=== PATIENT | female | born 1965 | race Caucasian/White ===

== ENCOUNTER 2025-09-27 22:51 | Emergency (ER) | payer MEDICARE, SELFPAY ==
--- OUTSIDE RECORDS SUMMARY | 2025-09-15 09:00 | XMS_ITS | Encounter Summary ---
Author Organization [facility] tem Address [facility] [id number] [address] [place] [address] Care Team Providers Care Guest Services Representative Name Role Phone Adenike Carrasco Primary Care Provid er Encounter Details DateTypeDepartmentCare Team (Latest Contact Info)Qkchyhzmfmn43/28/2025 10:00 AM EDTNurse Injection [facility] - Pharmacy Medication Management [address] [place] [address] Encounter for immunization (Primary Dx); Type 2 diabetes mellitus with diabetic neuropathy, without long-term current use of insulin ([facility]) Social History Tobacco UseTypesPacks/DayYears UsedDateSmoking Tobacco: FormerCigarettes Smokeless Tobacco: NeverAlcohol UseStandard Drinks/WeekCommentsNever0 (1 standard drink = 0.6 oz pure alcohol)Social Connection and Isolation PanelAnswer Date RecordedIn a typical week, how many times do you talk on the phone with family, friends, or neighbors?Once a week12/01/2022How often do you get together with friends or relatives?Never12/01/2022How often do you attend episcopal or pentecostalism services?Never3Do you belong to any clubs or organizations such as episcopal groups, unions, fraternal or athletic groups, or school groups?No 12/01/2022How often do you attend meetings of the clubs or organizations you belong to?Never12/01/2022re you , , , , never , or living with a partner?Oysfsjy0512/01/2022UDIT-CAnswerDate RecordedQ1: How often do you have a drink containing alcohol?Never12/01/2022Q2: How many drinks containing alcohol do you have on a typical day when you are drinking? Patient does not drink12/01/2022Q3: How often do you have six or more drinks on one occasion?Never12/01/2022Overall Financial Resource Strain (CARDIA)AnswerDate RecordedHow hard is it for you to pay for the very basics like food, housing, medical care, and heating?Somewhat hard10/07/2023HQ-2AnswerDate RecordedTotal Edabk420Finut[facility] [place] Level of Occupational Health - Occupational Stress QuestionnaireAnswerDate RecordedDo you feel stress - tense, restless, nervous, or anxious, or unable to sleep at night because yourmind is troubled all the time - these days?Very much12/01/2022Exercise Vital SignAnswerDate RecordedOn average, how many days per week do you engage in moderate to strenuous exercise (like a brisk walk)?0 days12/01/2022On average, how many minutes do you engage in exercise at this level?0 min12/01/2022RAPARE - TransportationAnswerDate RecordedIn the past 12 months, has lack of transportation kept you from medical appointments or from getting medications?No10/07/2023In the past 12 months, has lack of transportation kept you from meetings, work, or from getting things needed for daily living?No10/07/2023Housing InstabilityAnswerDate RecordedAre you worried or concerned that in the next two months you may not have stable housing that you own, rent or stay in as a part of a household?No10/07/2023 ChildcareAnswerDate RecordedDo problems getting child care team lead make it difficult for you to work or study?No12/01/2022EmploymentAnswerDate RecordedDo you need help finding a local career center and/or a training program?No12/01/2022Hunger ScreeningAnswerDate RecordedWithin the past 12 months we worried whether our food would run out before we got money to buy more.Never True02/05/2025Within the past 12 months the food we bought just didn't last and we didn't have money to get more.Never True02/05/2025Purpose - LifeAnswerDate RecordedI have a purpose and direction in my life.Eopxekqn15/13/2023EducationAnswerDate Recorded What is the highest level of school you have completed or the highest degree you have received?12th grade08/21/2022CommentsNoSex and Gender Information ValueDate RecordedSex Assigned at SovawAvifjp81/03/2020 1:38 PM ESTLegal Sex Qdzsbp3306/24/2015 11:29 AM EDTGender AwyepjirDczewf26/03/2020 1:38 PM ESTSexual MxfzathooakPfwqtrdc45/03/2020 1:38 PM ESTdocumented as of this encounter Progress Notes * Amelie Alejo RPH - 09/15/2025 10:00 AM EDT AMELIE ALEJO RPH administered FLUCELVAX 0.5 ML via intramuscular route in the left deltoid on September 15, 2025. The Lot Number is [id number], [facility] is [id number], Web Operations Lead is [employer], and Expiration Date is 04/04/2026. VIS provided to patient on September 15, 2025. Patient provided consent to any costs associated with the influenza vaccine and administration. Amelie Alejo RPH 09/15/25 1020 * Amelie Alejo RPH - 09/15/2025 10:00 AM EDT Images from the original note were not included. Glucose is highly uncontrolled. We will add Tradjenta 5 mg daily and follow up in 1 week to assess glucose further. Amelie Alejo PharmD, [facility] September 15, 2025 10:06 AM Dexcom Clarity Effie Tim Date of : 1965 Generated at: Sep 15, 2025 10:05 AM EDT Reporting period: SunSep 02, 2025 - SunSep 15, 2025 Glucose Details Average glucose: 241 mg/dL GMI: 9.1% Standard deviation: 63 mg/dL Coefficient of Variation: 26.0% Time in Range Very High: 44% High: 38% In Range: 18% Low: 0% Very Low: 0% Target Range 70-180 mg/dL Sensor usage Days with data: Time active: 96% Avg. calibrations per day: 0.2 Amelie Alejo RPH 09/15/25 1020 documented in this encounter Plan of Treatment DateTypeDepartmentCare Team (Latest Contact Info)Uahbdoacptk17/04/2025 1:00 PM ESTClinical Support [facility] - [facility] Medication Management [address] [place] [address] documented as of this encounter Goals GoalPatient Goal TypeAssociated ProblemsRecent ProgressPatient-Stated?Author Home Elly Mcmullen, SHIRT TURNER Note: Evaluation of progress towards goal: pending therapy eval documented as of this encounter Visit Diagnoses Diagnosis Encounter for immunization- Primary Type 2 diabetes mellitus with diabetic neuropathy, without long-term current use of insulin ([facility]) documented in this encounter Additional Health Concerns AssessmentNoted TimePHQ-9 Depression Total Score: 2:08 PM EDTA Body Mass Index follow-up plan has been documented for the wznyydc6912/11/2019 1:20 PM ESTdocumented as of this encounter Care Teams Team MemberRelationshipSpecialtyStart DateEnd Date Adenike Carrasco APRN-DODIE [address] [place] [address] PCP - GeneralNurse Practitioner03/26/25documented as of this encounter
--- OUTSIDE RECORDS SUMMARY | 2025-09-23 14:00 | XMS_ITS | Encounter Summary ---
Author Organization [facility] [employer] [facility] tem Address [id number] [address] [place] [address] Care Team Providers Care Cartridge Assembler Name Role Phone Adenike Carrasco APRN-[employer] Primary Care Provid er Reason for Visit * ReasonCommentsDiabetes MellitusMTM Follow-up Visit Encounter Details DateTypeDepartmentCare Team (Latest Contact Info)Nrmsxaziidn75/05/2025 2:00 PM ESTClinical Support [facility] - Pharmacy Medication Management [address] [place] [address] Type 2 diabetes mellitus with diabetic neuropathy, without long-term current use of insulin ([facility]) (Primary Dx) Social History Tobacco UseTypesPacks/DayYears UsedDateSmoking Tobacco: FormerCigarettes Smokeless Tobacco: NeverAlcohol UseStandard Drinks/WeekCommentsNever0 (1 standard drink = 0.6 oz pure alcohol)Social Connection and Isolation PanelAnswer Date RecordedIn a typical week, how many times do you talk on the phone with family, friends, or neighbors?Once a week12/01/2022How often do you get together with friends or relatives?Never12/01/2022How often do you attend congregational or temple services?Never12/01/2022o you belong to any clubs or organizations such as congregational groups, unions, fraternal or athletic groups, or school groups?No 12/01/2022How often do you attend meetings of the clubs or organizations you belong to?Never12/01/2022re you , , , , never , or living with a partner?Rxpopeq5812/01/2022UDIT-CAnswerDate RecordedQ1: How often do you have a [...] housing, medical care, and heating?Somewhat hard10/07/2023HQ-2AnswerDate RecordedTotal Puojq764Fin[facility] hospital [place] of Occupational Health - Occupational Stress QuestionnaireAnswerDate [...] of a household?No10/07/2023 ChildcareAnswerDate RecordedDo problems getting assistant child care teacher make it difficult for you to work [...] have a purpose and direction in my life.Eacqevnl70/13/2023EducationAnswerDate Recorded What is the highest level of school you have completed or the highest degree you have received?12th grade08/21/2022CommentsNoSex and Gender Information ValueDate RecordedSex Assigned at DsdxdSawwvq67/03/2020 1:38 PM ESTLegal Sex Ezbqlq4006/24/2015 11:29 AM EDTGender UioqsiqkGmvlmc39/03/2020 1:38 PM ESTSexual CpypasscopkEhdoczix49/03/2020 1:38 PM ESTdocumented as of this encounter Last Filed Vital Signs Vital SignReadingTime TakenCommentsBlood Yocoegsk959/7409/23/2025 2:07 PM EST Idhzz254209/23/2025 2:07 PM ESTTemperature--Respiratory Rate--Oxygen Saturation-- Inhaled Oxygen Concentration--Cqncjy253.1 kg (267 lb)09/23/2025 2:07 PM EST Height--Body Mass Index45.8301/20/2025 1:57 PM ESTdocumented in this encounter Progress Notes * Louisa Alejo, [facility] - 09/23/2025 2:00 PM EST Images from the original note were not included. [facility] - PHARMACY MEDICATION MANAGEMENT [address] [facility] [address] Subjective SUBJECTIVE: PCP: PETER Panda Referring Provider: TINY Panda PPG Referring Provider: No-- Fax notes Consult Agreement: Yes Referral: Yes At last PharmD visit, Farxiga increased to 10 mg daily. After last OV, Tradjenta 5 mg daily started. Effie Tim is a 60 y.o. (White or [1]) female who presents for a follow up MT visit of Type 2 Diabetes Mellitus. Effie Tim is accompanied by her no spouse. Pertinent current medications include: Farxiga 10 mg QD Repaglinide 1 mg BIDWM Tradjenta 5 mg daliy Pertinent previous medications include: Trulicity (06/2022-09/2024)- even this lowest dose was causing bothersome GI upset. Tolerated for ~2years Ozempic (2018)- Nausea/vomiting Metformin (renal function- unable to locate clarifying notes as eGFR currently would allow for use.Was tried prior to 2021) Novolog ()- controlled glucose- no longer needed. Lantus ()- controlled glucose- no longer needed Jardiance (2021)- UTI Mounjaro (2023)-- GI side effects/ Leg swelling Tradjenta- (2021)- Changed to GLP. Can revisit in the future PERTINENT PAST MEDICAL HISTORY: Chronic Kidney Disease: Yes Atherosclerotic Cardiovascular Disease (ASCVD): No Heart Failure with Reduced/Preserved Ejection Fraction: No Pancreatitis/Gastroparesis: No Medullary Thyroid Carcinoma: No Bariatric Surgery: No Genitourinary Fungal Infections: Yes while on Jardiance DIET: Breakfast: Lunch: Dinner: Snacks: Drinks: No changes from previous EXERCISE: N/A Has been walking more recently TESTING Home blood glucose: Patient currently has a personal CGM in place. Blood Glucose Device Brand: CloudPartner G7 Diabetic Supplier: [employer] (Mail Order) Retail Dexcom Clarity Effie Tim Date of : 1965 Generated at: Sep 23, 2025 1:58 PM EST Reporting period: SunSep 10, 2025 - SunSep 23, 2025 Glucose Details Average glucose: 227 mg/dL GMI: 8.7% Standard deviation: 65 mg/dL Coefficient of Variation: 28.8% Time in Range Very High: 35% High: 41% In Range: 24% Low: 0% Very Low: 0% Target Range 70-180 mg/dL Sensor usage Days with data: Time active: 97% Avg. calibrations per day: 0.2 Objective OBJECTIVE: Vitals: BP 152/74 Pulse (!) 48 Wt 121.1 kg (267 lb) BMI 45.83 kg/m?? Caffeine intake within 60 minutes: No Height: Weight: Wt Readings from Last 3 Encounters: 09/23/25 121.1 kg (267 lb) 04/15/25 121.4 kg (267 lb 9.6 oz) 02/05/25 119.7 kg (264 lb) Weight Trend: stable BMI: Body mass index is 45.83 kg/m??. A1c: Lab Results Component Value Date HGBA1C 6.5 (H) 06/10/2023 TIDITGT3I 6.8 (A) 07/16/2025 SCr: Lab Results Component Value Date CREATININE 1.08 (H) 05/08/2025 GFR: GFR MDRD Af Amer Date Value Ref Range Status 01/09/2022 47 (L) >59 ml/min/1.73sq.m Final GFR MDRD Non Af Amer Date Value Ref Range Status 01/09/2022 39 (L) >59 ml/min/1.73sq.m Final UACR: @LABLAST(albcreatra) No results found for: EXTPOCALB Lab Results Component Value Date EXTUMICOR <0.2 05/14/2018 Vitamin B12 Level: Lab Results Component Value Date AKQLMMPX15 316 10/20/2021 Lipid Management: Lab Results Component Value Date CHOL 177 07/16/2024 EXTCHOL 228 05/14/2018 HDL 55 07/16/2024 EXTCHOHDL 3.7 05/14/2018 LDLCALC 101 07/16/2024 EXTLDL 145 05/14/2018 TRIG 106 07/16/2024 EXTRIG 103 05/14/2018 The 10-year ASCVD risk score (Larisa NAVA, et al., 2019) is: 8.9% Values used to calculate the score: Age: 60 years Clinically relevant sex: Female Is Non- : No Diabetic: Yes Tobacco smoker: No Systolic Blood Pressure: 138 mmHg Is BP treated: Yes HDL Cholesterol: 55 mg/dL Total Cholesterol: 177 mg/dL ADA Diabetes Quality Measures: Comments: Eye/Foot; UACR and Lipids are due - A1c: Up to date 07/16/25; 6.8% - Kidney Screening: - SCr: Up to date 04/22/25; 1.11 - UACR: Up to date 07/16/24 - Lipid Screening: Up to date 07/16/24 - Eye Exam: Overdue 04/30/2023; Rec'd 04/15/25 - Foot Exam: Overdue Possibly changing to DPM; not established yet - Dental Exam: Up to date 03/2025 - Tobacco User: Yes - On Aspirin: No- not indicated - On SHANNA/ARB: No- previously on valsartan (2021-1119). Unclear why stopped. Follows with [facility] cardiology - On Statin: No intolerant; LDL 101 - Immunizations: Needs Shingles/HepB Influenza Complete: Yes Pneumonia Complete: Yes Hepatitis B Complete: Unknown Shingles Complete: Unknown Tdap Complete: Yes Covid Complete: Yes Immunization History Administered Date(s) Administered COVID-19, mRNA, LNP-S, PF, 100mcg/0.5mL Dose 06/16/2021, 07/14/2021, 09/17/2021, 11/21/2021, 01/26/2022 Influenza, Im Flucelvax (Pf) 09/15/2025 Influenza, Injectable, quadrivalent (PF) 07/23/2017, 08/20/2017, 08/20/2018, 01/26/2022 Influenza, Recombinant, Quadrivalent, Injectable, Preserv 08/22/2019, 09/04/2020 Pneumococcal Polysaccharide 04/02/2015, 06/21/2015 Tdap 02/05/2024 ASSESSMENT/PLAN: ASSESSMENT: Type 2 Diabetes Mellitus: controlled as evidenced by hemoglobin A1c of 6.8% on 07/16/25. Most recent 2 week blood glucose average: 227 mg/dL, 24% TIR Glucose is exceptionally uncontrolled and finger sticks mirror CGM indicating accuracy of these elevations Patient endorses she has been under high stress secondary to illness of her own, her spouse, and her mother Tolerating dose increase of Farxiga and addition of Tradjenta without concern Consider retrial of metformin in the future. Per notes, it was stopped due to renal concerns in thepast. Scr remains near 1 at present time BP elevated in office again and patient endorses it has been elevated at home. Patient is followingwith [facility] cardiology. Encouraged her to call them with her current readings for potential adjustments to her regimen EDUCATION / ADA MEASURES: Reviewed A1C and blood glucose goals Reviewed CGM use and report with patient Reviewed signs and symptoms of hyperglycemia/hypoglycemia and how to treat Reviewed diabetes medication dosing, route, frequency, and side effects Encouraged using the Plate Method for healthy eating MEDICATION PLAN: Increase Repaglinide 2mg TIDWM Glucose is exceptionally uncontrolled. We will titrate repaglinide Continue Farxiga 10 mg daily and Tradjenta 5 mg daily Refills needed on pertinent current medications/supplies: No Patient Assistance, Grooving Machine Operator Coupon, or Prior Authorization: No MONITORING: CGM: Yes Glucometer Testing: As needed with CGM FOLLOW UP: Next PCP visit: TBD Next Pharmacist visit: 10/2025 Signature: Louisa Alejo PharmD, [facility] 30 minute mxgj-jj-uqai follow-up appointment. Louisa Alejo RPH 09/24/25 1457 documented in this encounter Plan of Treatment DateTypeDepartmentCare Team (Latest Contact Info)Ltpkmkpyamy31/04/2025 1:00 PM ESTClinical Support [facility] - [facility] Medication Management [address] [place] [address] documented as of this encounter Goals GoalPatient Goal TypeAssociated ProblemsRecent ProgressPatient-Stated?Author Home Elly Mcmullen, ITEM REPAIR MANAGER Note: Evaluation of progress towards goal: pending therapy eval documented as of this encounter Visit Diagnoses Diagnosis Type 2 diabetes mellitus with diabetic neuropathy, without long-term current use of insulin ([facility])- Primary documented in this encounter Additional Health Concerns AssessmentNoted TimePHQ-9 Depression Total Score: 2:08 PM EDTA Body Mass Index follow-up plan has been documented for the xpniqqd4712/11/2019 1:20 PM ESTdocumented as of this encounter Care Teams Team MemberRelationshipSpecialtyStart DateEnd Date Adenike Carrasco APRN-DODIE [address] [place] [address] PCP - GeneralNurse Practitioner03/26/25documented as of this encounter
[2025-09-27 22:55] VITALS: BP 165/97; PULSE 61; TEMP 36.7; O2SAT 99; BMI 44.6
[2025-09-27 23:16] LABS: Hematocrit 44.9 % (36.0-48.0); Hemoglobin 14.7 g/dL (12.0-16.0); Immature Granulocytes Abs Auto 0.03 10^3/uL (0.00-0.03); Immature Granulocytes Pct Auto 0.4 % (0.0-0.5); Lymphocytes Absolute Auto 1.2 10^3/uL (1.2-3.8); Mean Corpuscular HGB Conc 32.7 g/dL (29.9-35.2); Mean Corpuscular Hemoglobin 29.5 pg (26.7-34.0); Mean Corpuscular Volume 90.2 fL (81.0-99.0); Platelet Count 151 10^3/uL (150-450); Red Blood Count 4.98 10^6/uL (4.20-5.40); White Blood Count 8.5 10^3/uL (4.0-11.0)
[2025-09-27] MEDS: KETOROLAC TROMETHAMINE 30 MG/ML VIAL IVP (23:19)
[2025-09-27] MEDS: 0.9 % SODIUM CHLORIDE 1,000 ML 100 ML IV (23:19)
[2025-09-27 23:44] LABS: Alanine Aminotransferase 33 U/L (14-59); Albumin Globulin Ratio 0.7; Albumin Level 3.0 g/dL (3.4-5.0); Alkaline Phosphatase 119 U/L (46-116); Anion Gap 12.8; Aspartate Amino Transferase 26 U/L (15-37); Blood Urea Nitrogen 22.0 mg/dL (7.0-18.0); Calcium 8.8 mg/dL (8.5-10.1); Carbon Dioxide 22.1 mmol/L (21.0-32.0); Chloride 111 mmol/L (98-107); Estimated GFR (African America 44 (>=60 mL/min/1.73m^2); Estimated GFR (Non-African Ame 36 (>=60 mL/min/1.73m^2); Globulin 4.1 g/dL; Glucose 235 mg/dL (74-106); Lipase 64.0 U/L (16.0-77.0); Potassium 3.9 mmol/L (3.5-5.1); Sodium 142 mmol/L (136-145); Total Protein 7.1 g/dL (6.4-8.2)
[2025-09-27 23:48] LABS: Glucose Urine UA >=1000 mg/dL (NEGATIVE)
--- OUTSIDE RECORDS SUMMARY | 2025-09-27 23:50 | XMS_ITS | Encounter Summary ---
Author Organization [employer] [facility] tem Address [id number] [address] [place] [address] Care Team Providers Care Boat Tester Name Role Phone Adenike Carrasco Primary Care Provid er Encounter Details DateTypeDepartmentCare Team (Latest Contact Info)Kckzpsyyidi51/28/2025Travel Social History Tobacco UseTypesPacks/DayYears UsedDateSmoking Tobacco: FormerCigarettes Smokeless Tobacco: NeverAlcohol UseStandard Drinks/WeekCommentsNever0 (1 standard drink = 0.6 oz pure alcohol)Social Connection and Isolation PanelAnswer Date RecordedIn a typical week, how many times do you talk on the phone with family, friends, or neighbors?Once a week12/01/2022How often do you get together with friends or relatives?Never12/01/2022How often do you attend hindu or mandaeism services?Never12/01/2022o you belong to any clubs or organizations such as hindu groups, unions, fraternal or athletic groups, or school groups?No 12/01/2022How often do you attend meetings of the clubs or organizations you belong to?Never12/01/2022re you , , , , never , or living with a partner?Mnonlub0512/01/2022UDIT-CAnswerDate RecordedQ1: How often do you have a [...] housing, medical care, and heating?Somewhat hard10/07/2023HQ-2AnswerDate RecordedTotal Nketo740F[facility] [place] of Occupational Health - Occupational Stress QuestionnaireAnswerDate [...] a household?No10/07/2023 ChildcareAnswerDate RecordedDo problems getting child protection specialist make it difficult for you to work [...] have a purpose and direction in my life.Hwsqesnx30/13/2023EducationAnswerDate Recorded What is the highest level of school you have completed or the highest degree you have received?12th grade2CommentsNoSex and Gender Information ValueDate RecordedSex Assigned at IbjzrQczwij66/03/2020 1:38 PM ESTLegal Sex Mifotv1306/24/2015 11:29 AM EDTGender GjldxrkwVhyopt51/03/2020 1:38 PM ESTSexual RzqbgtvtqemEyipjxzb72/03/2020 1:38 PM ESTdocumented as of this encounter Plan of Treatment DateTypeDepartmentCare Team (Latest Contact Info)Eecwekjzxeb46/04/2025 1:00 PM ESTClinical Support [facility] - Pharmacy Medication Management [address] [place] [address] documented as of this encounter Goals GoalPatient Goal TypeAssociated ProblemsRecent ProgressPatient-Stated?Author Home Elly Mcmullen, LENS ENGRAVER Note: Evaluation of progress towards goal: pending therapy eval documented as of this encounter Visit Diagnoses Not on filedocumented in this encounter Additional Health Concerns AssessmentNoted TimePHQ-9 Depression Total Score: 2:08 PM EDTA Body Mass Index follow-up plan has been documented for the vbhdhta9012/11/2019 1:20 PM ESTdocumented as of this encounter Care Teams Team MemberRelationshipSpecialtyStart DateEnd Date Adenike Carrasco APRN-NP [address] [place] [address] PCP - GeneralNurse Practitioner03/26/25documented as of this encounter
--- OUTSIDE RECORDS SUMMARY | 2025-09-27 23:50 | XMS_ITS ---
Author Organization [facility] Address [facility] [place] [address] Care Team Providers Care Catering Driver Name Role Phone Leandra Bailey PHLEBOTOMIST LAB ASSISTANT Unavailable Unavailable Leah Lozano MD Unavailable Pascual De Los Santos MD Unavailable Adenike Carrasco CHEMISTRY RESEARCH ASSISTANT Primary Care Provider Active Problems ProblemNoted DateDiagnosed DateGastroesophageal reflux disease without plguxtmztyq43/26/2025Primary kvdzwexsrcym97/26/2025RLS (restless legs syndrome) 06/13/2025hronic pain jomsscat58/26/2025Seizure-like okrlezjv08/25/2025reast edema5Absolute yqhsqs6902/09/2025Obstructive sleep apnea4BMI 45.0-49.9, adult01/07/2024epression, wodmmotll80/08/2023Stage 3b chronic kidney uwcqqoe2312/26/2021Megaloblastic anemia due to vitamin B12 cmtwlaealc11/07/2022 Iron deficiency uoqqfc1112/05/2018History of pulmonary rubgwaas16/17/2019Left Breast Lump or Mass10/13/2014Personal history of Right Breast Cancer 2009 s/p BCT112/13/2013Numbness in feet11/08/2012Peripheral oaswobumdd24/21/2012Type 2 diabetes mellitus with diabetic neuropathy, without long-term current use of bsjmrvo7911/08/2012reast nmdpxk4209/04/20128682Crqtebjmaqynm08/17/2012 Current Treatment and Therapy Plans No current plan information found. Past Treatment and Therapy Plans
--- OUTSIDE RECORDS SUMMARY | 2025-09-27 23:50 | XMS_ITS | Clinical Summary ---
Author Organization [facility] Address [address] [place] [id number] Care Team Providers Care Staff Research Associate Name Role Phone Leandra Bailey DATA MANAGEMENT MANAGER Unavailable Unavailable Leah Lozano MD Unavailable Pascual De Los Santos MD Unavailable Adenike Carrasco AUTOMOBILE PARTS ASSEMBLER Primary Care Provider Allergies Active AllergyReactionsCriticalityNoted DateCommentsAlpha Lipoic AcidDiarrhea,GI Upset,Other: See Comments,Intolerance,Itching,Zydrzsxw80/30/2021Alpha Lipoic Acid (Bulk)Diarrhea,GI Upset,Itching,Other: See Lltpiqpt69/30/2021sparagus Ipagacrqfxh75/25/2025Sulfamethoxazole-WikftfgzibxcSmpmsdm90/17/2025Calcium Phos,Dibas-Vitamin Y9Jdasi: See Rqfmutyx03/03/2021 Other reaction(s): Unknown Cholecalciferol (Vitamin D3)Gvjyzkrc16/18/2018Citrus HqigcxWovessdewdo83/25/2025 Rosuvastatin SpiajyyFtvkijxn90/10/1025UgypbywefjbceodXrxitlv14/10/2019Diltiazem Intolerance,GI Upset,Hives,Dewjgua5511/08/2012 Other reaction(s): Intolerance Diphenhydramine-PhenylephrineOther: See Comments,HalyrskHqxjyj31/26/2020 Muscle Spasm and Twitching Other reaction(s): Other: See Comments Muscle Spasm and Twitching Muscle Spasm and Twitching Amitriptyline RleAgnvtysj94/25/8916FwwttbyafxWxtls70/10/2019Grapefruit Bnqvmmcfbpi35/25/2025IronGI Upset,Diarrhea,Intolerance,Pffyigca89/18/2018 Atorvastatin MjukvjkYufbpuzu82/03/0866YfrzchzbdlDpaoq49/29/2020TirzepatideOther: See Bfbwwpeu83/20/2024 Legs swollen NortriptylineOther: See Tvrlyuvg12/07/2013 mouth turned purple OxcarbazepineOther: See Comments,Wnrfbzk9406/25/2013 mouth turned purple Other reaction(s): Other: See Comments mouth turned purple mouth turned purple PramipexoleGI Upset,Yqdscoy9909/29/2014 Other reaction(s): GI Upset SemaglutideVomiting,GI Upset06/03/20200034ZdbqzzcQesxphzcxct38/25/2025 Ffjrwxt-Haj-Mzr Reductase TvszqueycbAybmw99/26/2228HgucngVtbnvqnnzex27/25/2025 TopiramateOther: See Hmjietrb62/07/2013 Feels like she is being electrocuted OwsovdjfrMrcucee38/01/9418WpsvzwlewnhHwuqmbn98/18/2018 ALL antidepressants Vitamin E PhosphateGI Upset07/10/2023 Stomach issues Medications MedicationSigDispense QuantityRefillsLast FilledStart DateEnd DateStatus pantoprazole DR (PROTONIX) 40 mg tablet Take 40 mg by mouth once daily.Active calcitriol (ROCALTROL) 0.25 mcg capsule Take 0.25 mcg by mouth three times a week. Weaning offActive METOPROLOL SUCCINATE ORAL Take 50 mg by mouth once daily.Active fluticasone (FLONASE) 50 mcg/actuation nasal spray Use 1 [place] in the nose.12/06/2022ctive escitalopram oxalate (LEXAPRO) 10 mg tablet 12/26/2022ctive fexofenadine (SHOSHANA ALLERGY) 180 mg tablet Take by mouth q 24 HR.Active apixaban (ELIQUIS DVT-PE TREAT 30D START) 5 mg (74 tabs) Take 2 tablets by mouth twice daily for 6 days, then take 1 tablet twice daily 06/13/2023ctive naloxone 4 mg/actuation nasal spray (NARCAN) Use 1 spray in one nostril as needed for overdose. May repeat every 2 to 3 min in alternating nostrils until medical assistance is available 1 Each 4Active CPAP/BIPAP/OTHER Indications:Obstructive sleep apnea,Excessive daytime sleepiness,Frequent nocturnal awakening,Snoring,Witnessed episode of apneaAutoCPAP 9-17 cmH20. DME: [facility]. 1 Each /ctive Needle, Disp, 23 G 23 gauge x 1 ndle Indications:Other vitamin B12 deficiency anemia1 Needle once every month. 12 Each 6Active Syringe, Disposable, (SAFETY-GREG SYRINGE 3CC) 3 mL syrg Indications:Other vitamin B12 deficiency anemia3 mL once every month. 12 each 6Active zonisamide (ZONEGRAN) 25 mg capsule Take 3 capsules by mouth daily at bedtime. 270 capsule 5Active cyanocobalamin 1,000 mcg/mL Indications:Other vitamin B12 deficiency anemiaINJECT 1 mL INTRAMUSCULARLY once monthly 1 mL 5Active rOPINIRole (REQUIP) 1 mg tablet TAKE 2 TABLETS BY MOUTH DAILY AT BEDTIME. TAKE 1-3 hours BEFORE bedtimeActive albuterol HFA (PROVENTIL HFA, VENTOLIN HFA) 90 mcg/actuation inhaler Inhale 2 puffs as instructed every 6 hours as needed for wheezing/shortness of breath.5Active Amoxicillin 500 mg tablet Take 1 tablet by mouth.5Active dapagliflozin propanediol (FARXIGA) 5 mg tablet 5Active repaglinide (PRANDIN) 1 mg tablet Take 1 mg by mouth two times a day before meals.5Active DEXCOM G7 SENSOR natty 5Active tiZANidine (ZANAFLEX) 4 mg tablet Take 1 tablet by mouth every 8 hours as needed. 90 tablet 5Active oxyCODONE ER (OXYCONTIN) 40 mg 12 hr tablet Indications:Nerve painTake 1 tablet by mouth every 12 hours for 30 days. 60 tablet /5Active naloxone 4 mg/actuation nasal spray (NARCAN) [place] 0.1 mL (contents of one device) into one nostril upon signs of opioid overdose. Call 911. Mayrepeat once if no response within 2-3 minutes. 2 each 09/08/2025tive tiZANidine (ZANAFLEX) 4 mg tablet Take 1 tablet by mouth every 8 hours as needed. 90 tablet Discontinued oxyCODONE ER (OXYCONTIN) 40 mg 12 hr tablet Indications:Nerve painTake 1 tablet by mouth every 12 hours for 30 days. 60 tablet Discontinued naloxone 4 mg/actuation nasal spray (NARCAN) Use 1 spray in one nostril as needed for overdose. May repeat every 2 to 3 min in alternating nostrils until medical assistance is available 1 each Discontinued naloxone 4 mg/actuation nasal spray (NARCAN) Use 1 spray in one nostril as needed for overdose. May repeat every 2 to 3 min in alternating nostrils until medical assistance is available 1 each Discontinued Active Problems ProblemNoted DateDiagnosed DateGastroesophageal reflux disease without xjwlnklpaox56/26/2025Primary vgspsrhrptid02/26/2025RLS (restless legs syndrome) 06/13/2025hronic pain ezwweffl98/26/2025Seizure-like znpubmsv42/25/2025reast edema04/06/2025bsolute phqfrw1402/09/2025Obstructive sleep apnea4BMI 45.0-49.9, adult01/07/2024epression, quveefrgr52/08/2023Stage 3b chronic kidney qocmwyw3912/26/2021Megaloblastic anemia due to vitamin B12 uasczgvstn43/07/2022 Iron deficiency gykads3812/05/2018History of pulmonary njqxpaaf03/17/2019Left Breast Lump or Mass10/13/2014Personal history of Right Breast Cancer 2009 s/p BCT112/13/2013Numbness in feet11/08/2012Peripheral hnhkkatbju53/21/2012Type 2 diabetes mellitus with diabetic neuropathy, without long-term current use of nfpyonp9411/08/2012reast glvvzi6709/04/20121162Uqtlgxhirucdm61/17/2012 Encounters DateTypeDepartmentCare KjopJztgxqnkdnf38/21/2025Refill Neurology [address] [place] [address], [place] [address] Zachary Martínez, DO Med Change Wnwxbbk1809/07/2025Refill Neurology [address] [place] [address] Zachary Martínez, DO Med Change Ouptvts9009/07/2025Refill Neurology [address] [place] [address] Zachary Martínez, DO Refill Wyzbvmm8408/29/2025Orders Only Pseud[place] [address] Pascual De Los Santos MD 08/27/2025Orders Only [place] [address] Pascual De Los Santos MD 08/09/2025Refill Neurology [address] [place] [address] Zachary Martínez, DO Refill Ryeqvda8207/30/2025Orders Only [place] [address] Pascual De Los Santos MD 07/17/2025 4:30 PM [facility] [address] [place] [address], [place] [address] Bria Alfaro, UNITIZER.PERFORMANCE IMPROVEMENT ANALYST Seizure-like activity (HCC) (Primary Dx); Depression, recurrent; Primary zbqlhjgxturp07/24/2025Refill Neurology [address] [place] [address] Zachary Martínez, DO Refill Opqqetq7807/12/20254688Oetrtw37/12/2025Orders Only [place] [address] Pascual De Los Santos MD from Last 3 Months Immunizations ImmunizationAdministration DatesNext DueCOVID-19 original vaccine, full dose, monovalent (MODERNA)11/21/2021,09/17/2021influenza (IIV4) vaccine, age 6 mo - 64 yr, quadrivalent, PF (AFLURIA, FLUARIX, FLULAVAL, FLUZONE)01/26/2022,08/20/2018, 08/20/2017,07/23/2017influenza (RIV4) vaccine, recombinant, quadrivalent, PF (FLUBLOK)09/04/2020,08/22/2019influenza vaccine, unspecified formulation 2pneumococcal polysaccharide (PPV23) vaccine, 23 valent (PNEUMOVAX 23) 06/21/2015,04/02/2015tetanus diphtheria pertussis (Tdap) vaccine, age 7+ yr (ADACEL, BOOSTRIX)02/05/2024 Family History Medical HistoryRelationCommentsHypertensionFatherBreast CancerMaternal AuntGreat Aunt; DeceasedHeartMaternal GrandmotherDeceasedNoneMotherNoneSister 2Relation StatusCommentsFatherAliveMaternal AuntMaternal GrandmotherMotherAliveSister 1 AliveSister 2 Social History Tobacco UseTypesPacks/DayYears UsedDateSmoking Tobacco: Some ErllAmskxlgeud977.7 Started: 01/24/1985Passive Smoke Exposure: PastSmokeless Tobacco: Never Comments:Smokes a few cigare ttes when anxious Alcohol UseStandard Drinks/WeekCommentsNever0 (1 standard drink = 0.6 oz pure alcohol)PHQ-2AnswerDate RecordedPHQ-2 mrpwx698rea Deprivation Index AnswerDate RecordedNational Score (1-100), lower number is lower risk81 02/09/2025State Score (1-10), lower number is lower znyo36902/09/2025Data from: https://www.neighborhoodatlas.[facility].edu/. Last address used for [address] CommentsNoSex and Gender InformationValueDate RecordedSex Assigned at YbamyMfzjzp82/10/2019 6:28 PM EST Legal SmvLiwdvd86/02/2012 10:12 AM ESTGender RvrpetquCirpls45/02/2020 8:02 PM ESTSexual DdtcagipeapLvvfspyk13/10/2019 6:28 PM EST Last Filed Vital Signs Vital SignReadingTime TakenCommentsBlood Isofboqf888/9307 7:20 AM EDT Kkeul724406/15/2025 8:33 AM MQPFqbymbyixgo27.9 ??C (98.4 ??F)06/15/2025 7:20 AM EDTRespiratory Geog381106/15/2025 7:20 AM EDTOxygen Eubmomsiql68%06/15/2025 7:20 AM EDTInhaled Oxygen Concentration--Yvzooq858.3 kg (269 lb 10 oz)06/12/2025 2:17 PM TINGwgijx169.6 cm (5' 4 )06/12/2025 2:17 PM EDTBody Mass Index46.28006/12/2025 2:17 PM EDT Plan of Treatment DateTypeDepartmentCare Team (Latest Contact Info)Jazbscjswum63/09/2026 2:00 PM EDTOffice Visit [facility] [address] [place] [address] 1 Year lab03/04/2026 2:00 PM EDTVisit (SP) Office Hematology/Oncology [address] [place] [address] Stan Bell MD [address] [place] [address] 1 Year follow upHealth MaintenanceDue DateLast DoneCommentsDiabetic Foot Exam 1975Dilated Retinal Exam1975Annual PCP Team Chronic Disease Visit 1983Anxiety Ohstgdplv18/02/1983HIV Qjbsgktbc85/02/1983Hepatitis C Wiolecjkh78/02/1983LDL Lsbcttsweaj43/02/1983Cervical Cancer Oxywhccyb56/02/1986 CT Krdjxvwlwvcn58/02/2010Cologuard (FIT-DNA)05/20/20108728Launidepxip52/02/2010 Colorectal Cancer Llymtwerr20/02/2010Fecal Occult Blood2010Sigmoidoscopy 2010Shingrix Vaccine (1 of 2)2015Pneumococcal Vaccine: 50+ (2 of 2 - PCV), 04/02/2015Medicare Advantage Annual Wellness Visit 11/19/2024RSV Vaccine (1 - Risk 60-74 years 1-dose series)2025ovid-19 Vaccine ( season)/08/2022, 11/21/2021, 09/17/2021, Additional history existsInfluenza Vaccine (#1)/08/2022, 01/26/2022, 09/04/2020, Additional history ejryudGfI6W39/28/202608/, 04/15/2025, 01/16/2025, Additional history existsLung Cancer Mbiewwjfr59, 01/20/2025, 09/01/2023, Additional history existsMammogram Gnsgyniva67/18/2026 02/03/2025, 12/26/2024, 12/25/2023, Additional history existsUrine Albumin:Creatinine Ratio, 10/21/2024, 07/16/2024, Additional history existsSerum Owgexmiyys96, 05/08/2025, 04/22/2025, Additional history existsDTaP,Tdap,Td Vaccine (2 - Td or Tdap)02/04/2034 02/05/2024 Goals GoalPatient Goal TypeAssociated ProblemsRecent ProgressPatient-Stated?Author Blood Pressure < 130/80 Blood Ycqkminh000/93(06/15/2025 7:20 AM EDT)Cheryl Solis MD Medical Devices ImplantedTypeAreaManufacturerDevice IdentifierShelf Expiration DateModel / Serial / [id number] Implanted:04/22/2025 (Quantity not on file)Loop RecorderMEDTRONIC [id number] / [id number] / Procedures Procedure NamePriorityDate/TimeAssociated DiagnosisCommentsREM INTERROG SCRMS <30 D PHYS/SWLHbfgmyt96/11/2025 7:12 PM EDT CARDIAC IMPLANTABLE DEVICE CHECK IZTYMYGfwukdg93/09/2025 12:02 AM EDT CARDIAC IMPLANTABLE DEVICE CHECK EKQBJFSflwjan45/11/2025 7:16 PM EDT REM INTERROG SCRMS <30 D PHYS/EQYXetunci39/12/2025 7:13 PM EDT COMPREHENSIVE METABOLIC CLDFDAfnbmbs19/26/2025 1:12 AM EDT MAVERICK SWIFT MPBPVBVWNDdeqcmv11/18/2025 2:26 PM EDT HEMOGLOBIN V8OUqiroqv94/20/2015 10:57 AM EDT Clotting disorder (HCC) Vitamin deficiency Neuropathy (HCC) 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), type 1 with neurological complications (HCC) from Last 3 Months or Most Recently Relevant to Health Maintenance Results * CARDIAC IMPLANTABLE DEVICE CHECK REMOTE (08/29/2025 7:12 PM EDT)ComponentValue Ref RangeTest MethodAnalysis TimePerformed AtPathologist SignatureDate Time Interrogation [id number] CARDIACType Interrogation Session RemoteMUR CARDIACImplantable Pulse Generator ManufacturerMedtronicMURJ CARDIACImplantable Pulse Generator TypeOtherMURJ CARDIACImplantable Pulse Generator [id number] CARDIACImplantable Pulse Generator Serial Number [id number] CARDIACImplantable Pulse Generator Implant [id number] CARDIACSpecimen (Source)Anatomical Location / LateralityCollection Method / VolumeCollection TimeReceived Time08/29/2025 7:12 PM EDT Narrative MURJ CARDIAC - 08/31/2025 1:06 PM EDT Normal Remote: No Events * This is a normal remote diagnostic device check * Alerts or events: None * Battery data was reviewed * Battery status: ??good , * Presenting rhythm reviewed: sinus * Heart Rate Histograms reviewed * PVCs (% beats) 0.5% Patient Triggered * Patient triggered event with symptom(s) * Stored EGMs are consistent with or suggestive of _sinus with PAC's__ * Total patient triggered episodes: 4 NOTE TO PROVIDERS: Cardiac Implanted Devices Flowsheets contain detailed Programming and Evaluation data. Full Docket/PDF found below under Scanned Documents . Procedure Note Pascual De Los Santos MD - 08/31/2025 Normal Remote: No Events * This is a normal remote diagnostic device check * Alerts or events: None * Battery data was reviewed * Battery status: good , * Presenting rhythm reviewed: sinus * Heart Rate Histograms reviewed * PVCs (% beats) 0.5% Patient Triggered * Patient triggered event with symptom(s) * Stored EGMs are consistent with or suggestive of _sinus with PAC's__ * Total patient triggered episodes: 4 NOTE TO PROVIDERS: Cardiac Implanted Devices Flowsheets contain detailed Programming and Evaluation data. Full Docket/PDF found below under Scanned Documents . Authorizing ProviderResult TypeResult StatusPasquBess [facility] Hospital MDCARDIOLOGY Final ResultPerforming OrganizationAddressCity/State/ZIP CodePhone Number MURJ CARDIAC * CARDIAC IMPLANTABLE DEVICE CHECK REMOTE (08/27/2025 12:02 AM EDT)Component ValueRef RangeTest MethodAnalysis TimePerformed AtPathologist SignatureDate Time Interrogation [id number] CARDIACType Interrogation SessionRemoteMURJ CARDIACImplantable Pulse Generator ManufacturerMedtronicMURJ CARDIACImplantable Pulse Generator TypeOtherMURJ CARDIACImplantable Pulse Generator HougnFXZ29OIJG CARDIACImplantable Pulse Generator Serial Number [id number] CARDIACImplantable Pulse Generator Implant [id number] CARDIACBattery StatusOKMURJ CARDIACZone Setting Type CategoryBradyMURJ CARDIAC Rate 130MURJ CARDIACZone Setting Detection Bwmhnkw4JTUP CARDIACZone Setting StatusOnMURJ CARDIACZone HV4YZLG CARDIACZone Setting Type CategoryPauseMURJ CARDIACRate 13MURJ CARDIACZone Setting StatusOnMURJ CARDIACZone [id number] CARDIACZone Setting Type CategoryAFMURJ CARDIACZone Setting StatusOnMURJ CARDIACZone EH8QLAZ CARDIACZone Setting Type CategoryATMURJ CARDIACZone Setting StatusOffMURJ CARDIACZone MQ2AKWC CARDIACZone Setting Type Category TachyMURJ CARDIACRate 1171MURJ CARDIACZone Setting Detection Zlppccx45ZLVK CARDIACZone Setting StatusOnMURJ CARDIACZone BH3DUWO CARDIACSpecimen (Source) Anatomical Location / LateralityCollection Method / VolumeCollection Time Received Time08/27/2025 12:02 AM EDT Narrative MURJ CARDIAC - 08/31/2025 1:05 PM EDT Patient Triggered: No Arrhythmia * Patient triggered event with symptom(s) N/A * Stored EGMs are consistent with or suggestive of no arrhythmia(s) * Total patient triggered episodes: 01 Patient Triggered * Patient triggered event with symptom(s) none listed * Stored EGMs are consistent with or suggestive of _SR/SB__ * Clinical arrhythmia during triggered event: _SR/SB with ectopy ( PAC's) and non-sustained AT run ( 6 beats)__ * Total patient triggered episodes: 1 at 17:28 on 08/26/25. Estimated: PVCs (% beats) 0.4% Premature Atrial Contraction (PAC) * Stored EGMs are consistent with or suggestive of Premature Atrial Contraction(s) * Total episodes: _1 binned as patient triggered alert at 17:28 on 08/26/25__ Seen as singles and couplets Non-sustained Tachycardia: AT * Stored EGMs are consistent with or suggestive of SR/SB with ectopy and non- sustained Atrial Tachycardia (6 beats) * Total episodes: 1 at 17:28 on 08/26/25 NOTE TO PROVIDERS: Cardiac Implanted Devices Flowsheets contain detailed Programming and Evaluation data. Full Docket/PDF found below under Scanned Documents . Procedure Note Pascual De Los Santos MD - 08/31/2025 Patient Triggered: No Arrhythmia * Patient triggered event with symptom(s) N/A * Stored EGMs are consistent with or suggestive of no arrhythmia(s) * Total patient triggered episodes: 01 Patient Triggered * Patient triggered event with symptom(s) none listed * Stored EGMs are consistent with or suggestive of _SR/SB__ * Clinical arrhythmia during triggered event: _SR/SB with ectopy ( PAC's)and non-sustained AT run ( 6 beats)__ * Total patient triggered episodes: 1 at 17:28 on 08/26/25. Estimated: PVCs (% beats) 0.4% Premature Atrial Contraction (PAC) * Stored EGMs are consistent with or suggestive of Premature Atrial Contraction(s) * Total episodes: _1 binned as patient triggered alert at 17:28 08/26/25__ Seen as singles and couplets Non-sustained Tachycardia: AT * Stored EGMs are consistent with or suggestive of SR/SB with ectopy andnon- sustained Atrial Tachycardia (6 beats) * Total episodes: 1 at 17:28 on 08/26/25 NOTE TO PROVIDERS: Cardiac Implanted Devices Flowsheets contain detailed Programming and Evaluation data. Full Docket/PDF found below under Scanned Documents . Authorizing ProviderResult TypeResult StatusPasUmpqua Valley Community Hospital MDCARDIOLOGY Final ResultPerforming OrganizationAddressCity/State/ZIP CodePhone Number MURZeus CARDIAC * CARDIAC IMPLANTABLE DEVICE CHECK REMOTE (07/30/2025 7:16 PM EDT)ComponentValue Ref RangeTest MethodAnalysis TimePerformed AtPathologist SignatureDate Time Interrogation [id number] CARDIACType Interrogation Session RemoteMURJ CARDIACImplantable Pulse Generator ManufacturerMedtronicMURJ CARDIACImplantable Pulse Generator TypeOtherMURJ CARDIACImplantable Pulse Generator [id number] CARDIACImplantable Pulse Generator Serial Number [id number] CARDIACImplantable Pulse Generator Implant [id number] CARDIACSpecimen (Source)Anatomical Location / LateralityCollection Method / VolumeCollection TimeReceived Time07/30/2025 7:16 PM EDT Narrative MURJ CARDIAC - 08/03/2025 5:38 PM EDT Patient Triggered * Patient triggered event with symptom(s) No symptoms listed * Stored EGMs are consistent with or suggestive of __SR_ * Clinical arrhythmia during triggered event: __ectopy ( seen as PAC singles) _ * Total patient triggered episodes: 1 at 20:55 on 07/03/25. ??PDF attached to report. Presenting: SB, rate: 46 bpm Estimated PVCs (% beats) 0.8% Patient Triggered: No Arrhythmia * Patient triggered event with symptom(s) * Stored EGMs are consistent with or suggestive of no arrhythmia(s) * Total patient triggered episodes: 1 * Sinus rhythm w/ ectopy (PAC) Patient Triggered: No Arrhythmia * Patient triggered event with symptom(s) * Stored EGMs are consistent with or suggestive of no arrhythmia(s) * Total patient triggered episodes: 2 * Sinus rhythm with ectopy Premature Atrial Contraction (PAC) * Stored EGMs are consistent with or suggestive of Premature Atrial Contraction(s) * Total episodes: 2 pt trigger * Seen as singles, and couplets. Patient Triggered: No Arrhythmia * Patient triggered event with symptom(s) * Stored EGMs are consistent with or suggestive of no arrhythmia(s) * Total patient triggered episodes: 2 * Sinus rhythm with ectopy Premature Atrial Contraction (PAC) * Stored EGMs are consistent with or suggestive of Premature Atrial Contraction(s) * Total episodes: 2 patient symptom * Seen as singles and couplets. Patient Triggered * Patient triggered event with symptom(s) None listed * Stored EGMs are consistent with or suggestive of _SR/SA with ectopy__ * Clinical arrhythmia during triggered event: _ectopy seen as PAC singles__ * Total patient triggered episodes: 1 at 22:11 on 07/17/25. PDF attached to report Premature Atrial Contraction (PAC) * Stored EGMs are consistent with or suggestive of Premature Atrial Contraction(s) seen as singles Patient Triggered: No Arrhythmia * Patient triggered event with symptom(s) none listed * Stored EGMs are consistent with or suggestive of no arrhythmia(s): SR with ectopy * Total patient triggered episodes: 1 at 20:37 on 07/24/25 Presenting: SR, rate: 60 bpm Estimated PVCs (% beats) 0.6% Premature Atrial Contraction (PAC) * Stored EGMs are consistent with or suggestive of Premature Atrial Contraction(s) Seen as singles. Patient Triggered: No Arrhythmia * Patient triggered event with symptom(s) none Listed * Stored EGMs are consistent with or suggestive of no arrhythmia(s): SR with ectopy * Total patient triggered episodes: 1 at 21:06 on 07/25/25. Presenting: SR, rate: 86 bpm Estimated PVCs (% beats) 0.6% Premature Atrial Contraction (PAC) * Stored EGMs are consistent with or suggestive of Premature Atrial Contraction(s) Seen as singles and couplets Normal Remote: No Events >Summary 30-Jun-2025 to 30-Jul-2025 * This is a normal remote diagnostic device check * Alerts or events: pt trigger * Battery data was reviewed * Battery status: good * Presenting rhythm reviewed- SR 75 bpm. * Heart Rate Histograms reviewed * PVCs (% beats) 0.6% NOTE TO PROVIDERS: Cardiac Implanted Devices Flowsheets contain detailed Programming and Evaluation data. Full Docket/PDF found below under Scanned Documents . Procedure Note Santangnaren, Pascual, MD - 08/03/2025 Patient Triggered * Patient triggered event with symptom(s) No symptoms listed * Stored EGMs are consistent with or suggestive of __SR_ * Clinical arrhythmia during triggered event: __ectopy ( seen as PACsingles) _ * Total patient triggered episodes: 1 at 20:55 on 07/03/25. PDF attachedto report. Presenting: SB, rate: 46 bpm Estimated PVCs (% beats) 0.8% Patient Triggered: No Arrhythmia * Patient triggered event with symptom(s) * Stored EGMs are consistent with or suggestive of no arrhythmia(s) * Total patient triggered episodes: 1 * Sinus rhythm w/ ectopy (PAC) Patient Triggered: No Arrhythmia * Patient triggered event with symptom(s) * Stored EGMs are consistent with or suggestive of no arrhythmia(s) * Total patient triggered episodes: 2 * Sinus rhythm with ectopy Premature Atrial Contraction (PAC) * Stored EGMs are consistent with or suggestive of Premature Atrial Contraction(s) * Total episodes: 2 pt trigger * Seen as singles, and couplets. Patient Triggered: No Arrhythmia * Patient triggered event with symptom(s) * Stored EGMs are consistent with or suggestive of no arrhythmia(s) * Total patient triggered episodes: 2 * Sinus rhythm with ectopy Premature Atrial Contraction (PAC) * Stored EGMs are consistent with or suggestive of Premature Atrial Contraction(s) * Total episodes: 2 patient symptom * Seen as singles and couplets. Patient Triggered * Patient triggered event with symptom(s) None listed * Stored EGMs are consistent with or suggestive of _SR/SA with ectopy__ * Clinical arrhythmia during triggered event: _ectopy seen as PACsingles__ * Total patient triggered episodes: 1 at 22:11 on 07/17/25. PDF attached to report Premature Atrial Contraction (PAC) * Stored EGMs are consistent with or suggestive of Premature Atrial Contraction(s) seen as singles Patient Triggered: No Arrhythmia * Patient triggered event with symptom(s) none listed * Stored EGMs are consistent with or suggestive of no arrhythmia(s): SRwith ectopy * Total patient triggered episodes: 1 at 20:37 on 07/24/25 Presenting: SR, rate: 60 bpm Estimated PVCs (% beats) 0.6% Premature Atrial Contraction (PAC) * Stored EGMs are consistent with or suggestive of Premature Atrial Contraction(s) Seen as singles. Patient Triggered: No Arrhythmia * Patient triggered event with symptom(s) none Listed * Stored EGMs are consistent with or suggestive of no arrhythmia(s): SRwith ectopy * Total patient triggered episodes: 1 at 21:06 on 07/25/25. Presenting: SR, rate: 86 bpm Estimated PVCs (% beats) 0.6% Premature Atrial Contraction (PAC) * Stored EGMs are consistent with or suggestive of Premature Atrial Contraction(s) Seen as singles and couplets Normal Remote: No Events >Summary 30-Jun-2025 to 30-Jul-2025 * This is a normal remote diagnostic device check * Alerts or events: pt trigger * Battery data was reviewed * Battery status: good * Presenting rhythm reviewed- SR 75 bpm. * Heart Rate Histograms reviewed * PVCs (% beats) 0.6% NOTE TO PROVIDERS: Cardiac Implanted Devices Flowsheets contain detailed Programming and Evaluation data. Full Docket/PDF found below under Scanned Documents . Authorizing ProviderResult TypeResult StatusPasquBess Kaiser Hospital MDCARDIOLOGY Final ResultPerforming OrganizationAddressCity/State/ZIP CodePhone Number MURJ CARDIAC * CARDIAC IMPLANTABLE DEVICE CHECK REMOTE (06/30/2025 7:13 PM EDT)ComponentValue Ref RangeTest MethodAnalysis TimePerformed AtPathologist SignatureDate Time Interrogation [id number] CARDIACType Interrogation Session RemoteMUR CARDIACImplantable Pulse Generator ManufacturerMedtronicMUR CARDIACImplantable Pulse Generator TypeOtherMUR CARDIACImplantable Pulse Generator [id number] CARDIACImplantable Pulse Generator Serial Number [id number] CARDIACImplantable Pulse Generator Implant [id number] CARDIACSpecimen (Source)Anatomical Location / LateralityCollection Method / VolumeCollection TimeReceived Time06/30/2025 7:13 PM EDT Narrative MURJ CARDIAC - 07/01/2025 12:35 PM EDT Patient Triggered * Patient triggered event with symptom(s)not listed * Clinical arrhythmia during triggered event: __PAC_ * Total patient triggered episodes: 10 Pause * Stored EGMs are consistent with or suggestive of a Pause * Total episodes: 2( 1-undersensing) * Longest episode:3s * Rhythm before episode: SR * Rhythm after episode:SR Patient Triggered * Patient triggered event with symptom(s) * Clinical arrhythmia during triggered event: __PAC_ * Total patient triggered episodes: 1 Normal Remote: No Events >Summary 05/31/25 - 06/30/25 * This is a normal remote diagnostic device check * Alerts or events: 14 symptoms - most consistent with SR/SB with PAC's. * Battery status: Good * Presenting rhythm reviewed: SR, ~60 bpm * Heart Rate Histograms reviewed * PVCs (% beats) 0.8% * OAC: Eliquis Premature Ventricular Contraction (PVC) * PVCs (% beats) 0.8% NOTE TO PROVIDERS: Cardiac Implanted Devices Flowsheets contain detailed Programming and Evaluation data. Full Docket/PDF found below under Scanned Documents . Procedure Note Pascual De Los Santos MD - 07/01/2025 Patient Triggered * Patient triggered event with symptom(s)not listed * Clinical arrhythmia during triggered event: __PAC_ * Total patient triggered episodes: 10 Pause * Stored EGMs are consistent with or suggestive of a Pause * Total episodes: 2( 1-undersensing) * Longest episode:3s * Rhythm before episode: SR * Rhythm after episode:SR Patient Triggered * Patient triggered event with symptom(s) * Clinical arrhythmia during triggered event: __PAC_ * Total patient triggered episodes: 1 Normal Remote: No Events >Summary 05/31/25 - 06/30/25 * This is a normal remote diagnostic device check * Alerts or events: 14 symptoms - most consistent with SR/SB with PAC's. * Battery status: Good * Presenting rhythm reviewed: SR, ~60 bpm * Heart Rate Histograms reviewed * PVCs (% beats) 0.8% * OAC: Eliquis Premature Ventricular Contraction (PVC) * PVCs (% beats) 0.8% NOTE TO PROVIDERS: Cardiac Implanted Devices Flowsheets contain detailed Programming and Evaluation data. Full Docket/PDF found below under Scanned Documents . Authorizing ProviderResult TypeResult StatusPasdayne De Los Santos MDCARDIOLOGY Final ResultPerforming OrganizationAddressCity/State/ZIP CodePhone Number MURJ CARDIAC * (ABNORMAL) COMPREHENSIVE METABOLIC PANEL (06/13/2025 1:12 AM EDT)Component ValueRef RangeTest MethodAnalysis TimePerformed AtPathologist Signature Protein, Total6.66.3 - 8.0 g/dL06/13/2025 2:32 AM [facility] LABAlbumin3.2(L)3.9 - 4.9 g/dL06/13/2025 2:32 AM [facility] LABCalcium, Total9.28.5 - 10.2 mg/dL06/13/2025 2:32 AM EDT [facility] LABBilirubin, Total0.50.2 - 1.3 mg/dL06/13/2025 2:32 AM [facility] LABAlkaline Szpkugaevon56706 - 123 U/L 06/13/2025 2:32 AM [facility] [id number] - 35 U/L 06/13/2025 2:32 AM [facility] UGJGNJ315 - 38 U/L 06/13/2025 2:32 AM [facility] PYSTfsifwj323(H)74 - 99 mg/dL06/13/2025 2:32 AM [facility] LABComment: The [place] Diabetes Association (ADA) provides guidance for cutoff values for fasting glucose andrandom glucose. The ADA defines fasting as no caloric intake for at least 8 hours. Fasting plasma glucose results between 100 to 125 mg/dL indicate increased risk for diabetes (prediabetes). Fasting plasma glucose results greater than or equal to 126 mg/dL meet the criteria for diagnosis of diabetes. In the absence of unequivocal hyperglycemia, results should be confirmed by repeat testing. In a patient with classic symptoms of hyperglycemia or hyperglycemic crisis, random plasma glucose results greater than or equal to 200 mg/dL meet the criteria for diagnosis of diabetes. Reference: Standards of Medical Care in Diabetes 2016, [place] Diabetes Association. Diabetes Care. 2016.39(Suppl 1). UVF417 - 21 mg/dL06/13/2025 2:32 AM [facility] Creatinine1.01(H)0.58 - 0.96 mg/dL06/13/2025 2:32 AM [facility] EIBZtnuod299166 - 144 mmol/L06/13/2025 2:32 AM [facility] LABPotassium4.13.7 - 5.1 mmol/L06/13/2025 2:32 AM [facility] OJBNsbvbzwi443(H)98 - 107 mmol/L06/13/2025 2:32 AM [facility] LFHWC868(L)22 - 30 mmol/L06/13/2025 2:32 AM [facility] LABAnion Qit871 - 15 mmol/L06/13/2025 2:32 AM [facility] LABEstimated Glomerular Filtration Rate64>=60 mL/min/1.73m 06/13/2025 2:32 AM [facility] LABComment:Estimated Glomerular Filtration Rate (eGFR) is calculated using the 2020 CKD-EPI creatinine equation. This equation utilizes serum creatinine, sex, and age as parameters. The creatinine assay has traceable calibration to isotope dilution- mass spectrometry. Refer to KDIGO guidelines for clinical interpretation. In patients with unstable renal function, e.g. those with acute kidney injury, the eGFRmay not accurately reflect actual GFR.Specimen (Source)Anatomical Location / LateralityCollection Method / VolumeCollection TimeReceived TimeBloodBLOOD SPECIMEN / UnknownVenipuncture / Qrwlzwi5406/13/2025 1:12 AM EDT06/13/2025 1:25 AM EDT Narrative Authorizing ProviderResult TypeResult StatusBraparna Betancourt PA-CLABORATORY Final ResultPerforming OrganizationAddressCity/State/ZIP CodePhone Number [facility] [address] [place] [phone], * [facility] DIAG W JENIFFER BILATERAL (02/03/2025 2:26 PM EDT)Anatomical RegionLaterality ModalityBreastBilateralMammographySpecimen (Source)Anatomical Location / LateralityCollection Method / VolumeCollection TimeReceived Time02/03/2025 2:26 PM EDT Impressions 02/03/2025 5:53 PM EDT IMPRESSION: Diffuse skin thickening involving the right breast. No abscess, and no suspicious finding on mammogram nor ultrasound. Differential considerations include post radiation changes, cellulitis (particularly considering the patient's acute symptoms), and inflammatory breast cancer. Therefore, surgical consultation is recommended to discuss need for possible skin punch biopsy. No suspicious imaging finding to explain the patient's left nipple discharge. Surgical consult also recommended. If clinically suspicious, MRI could be performed to further evaluate. I reviewed these results and recommendations with the patient. She is following up with her oncologist next week. She will review need for surgical consultation at that visit. BI-RADS Category 4: Suspicious RISK: ??Due to the reported patient's history, the patient's estimated lifetime risk of developing breast cancer cannot be assessed at this time. We encourage all patients to talk with their providers about their risk assessment, further recommendations for managing breast health, and appropriate supplemental screening options if the patient has dense breast tissue. Interpreting Radiologist: Deric Gomez M.D. Electronically signed on: 02/03/2025 Electrician'S Assistant: ANDREEA Transcribe Date/Time: Feb 03 2025 ??2:25P Dictated by : DERIC GOMEZ MD This examination was interpreted and the report reviewed and electronically signed by: DERIC GOMEZ MD on Feb 03 2025 ??5:48PM ??EST Narrative 02/03/2025 5:53 PM EDT * * *Final Report* * * DATE OF EXAM: Feb 03 2025 ??2:26PM ?? JACQUIE ?? 0627 ??- ??MAVERICK ARLEYG W JENIFFER PHYLLIS ??/ PROCEDURE REASON: D05.12-Cancer of breast, intraductal, left ? * * * * Physician Interpretation * * * * [facility] [address] [place] [address] #[id number] - [facility] DIAG W JENIFFER PHYLLIS #[id number] - [facility]AST [facility] #[id number] - [facility] BREAST [facility] RT HISTORY: 59 year-old patient seen for diagnostic evaluation of the finding(s) described on prior mammogram in the left breast and skin changes to the breast in the right breast. The patient has the following personal history of breast cancer: Right breast cancer 2009; status post lumpectomy and radiation. Patient presents today with a two-week history of erythema and swelling involving the right breast. Patient had minimal improvement with antibiotics. Patient also presents with a several year history of white, milky , left spontaneous nipple discharge. Patient described consistency similar to that of a pimple . Last episode approximately one week ago. COMPARISON STUDIES: The present examination has been compared to prior imaging studies dated 11/28/2018 (mammogram), 12/03/2019 (mammogram), 12/09/2020 (mammogram), 12/12/2021 (mammogram), 12/18/2022 (mammogram), 12/25/2023 (mammogram) and 12/26/2024 (mammogram). MAMMOGRAM TECHNIQUE: The study was acquired using full field digital technology and interpreted from soft copy. Digital Breast Tomosynthesis (DBT) images were obtained and used to assist in the interpretation of this examination. MAMMOGRAM FINDINGS: There are scattered areas of fibroglandular density. There are postsurgical changes in the right breast including coarse calcifications likely related to fat necrosis. There is also diffuse skin thickening involving the right breast which is new when compared to the most recent mammogram dated 12-26-24. No otherwise new suspicious mass, calcification, or distortion in the right breast. Additional spot compression views of the left breast demonstrate an asymmetry in the central breast which is mammographically similar to prior mammogram dated 12-09-20, and therefore benign. There is no suspicious mammographic finding to explain the patient's left nipple discharge. No new suspicious mass, calcification, or distortion in the left breast. ULTRASOUND TECHNIQUE: Targeted ultrasound of the indicated area was performed. Uribe scale images were saved. ULTRASOUND FINDINGS: Right breast: Targeted ultrasound of all 4 quadrants was performed. There is diffuse skin thickening involving nearly the entire right breast, most prominent in the 12 and 2:00 positions. There is no fluid collection to suggest abscess. No suspicious mass. Left breast: There is no suspicious sonographic finding to explain the patient's left nipple discharge. Procedure Note Provider, [facility] [place] - 02/03/2025 * * *Final Report* * * DATE OF EXAM: Feb 03 2025 2:26PM JACQUIE 0627 Sebastien FERGUSON / PROCEDURE REASON: D05.12-Cancer of breast, intraductal, left * * * * Physician Interpretation * * * * [address] [address] #[id number] - [facility] ALICJA FERGUSON #[id number] - [facility] #[id number] - [facility] RT HISTORY: 59 year-old patient seen for diagnostic evaluation of the finding(s) described on prior mammogram in the left breast and skin changes to the breast in the right breast. The patient has the following personal history of breast cancer: Right breast cancer 2009; status post lumpectomy and radiation. Patient presents today with a two-week history of erythema and swelling involving the right breast. Patient had minimal improvement with antibiotics. Patient also presents with a several year history of white, milky , left spontaneous nipple discharge. Patient described consistency similar to that of a pimple . Last episode approximately one week ago. COMPARISON STUDIES: The present examination has been compared to prior imaging studies dated 11/28/2018 (mammogram), 12/03/2019 (mammogram), 12/09/2020 (mammogram), 12/12/2021 (mammogram), 12/18/2022 (mammogram), 12/25/2023 (mammogram) and 12/26/2024 (mammogram). MAMMOGRAM TECHNIQUE: The study was acquired using full field digital technology and interpreted from soft copy. Digital Breast Tomosynthesis (DBT) images were obtained and used to assist in the interpretation of this examination. MAMMOGRAM FINDINGS: There are scattered areas of fibroglandular density. There are postsurgical changes in the right breast including coarse calcifications likely related to fat necrosis. There is also diffuse skin thickening involving the right breast which is new when compared to the most recent mammogram dated 12-26-24. No otherwise new suspicious mass, calcification, or distortion in the right breast. Additional spot compression views of the left breast demonstrate an asymmetry in the central breast which is mammographically similar to prior mammogram dated 12-09-20, and therefore benign. There is no suspicious mammographic finding to explain the patient's left nipple discharge. No new suspicious mass, calcification, or distortion in the left breast. ULTRASOUND TECHNIQUE: Targeted ultrasound of the indicated area was performed. Uribe scale images were saved. ULTRASOUND FINDINGS: Right breast: Targeted ultrasound of all 4 quadrants was performed. There is diffuse skin thickening involving nearly the entire right breast, most prominent in the 12 and 2:00 positions. There is no fluid collection to suggest abscess. No suspicious mass. Left breast: There is no suspicious sonographic finding to explain the patient's left nipple discharge. IMPRESSION IMPRESSION: Diffuse skin thickening involving the right breast. No abscess, and no suspicious finding on mammogram nor ultrasound. Differential considerations include post radiation changes, cellulitis (particularly considering the patient's acute symptoms), and inflammatory breast cancer. Therefore, surgical consultation is recommended to discuss need for possible skin punch biopsy. No suspicious imaging finding to explain the patient's left nipple discharge. Surgical consult also recommended. If clinically suspicious, MRI could be performed to further evaluate. I reviewed these results and recommendations with the patient. She is following up with her oncologist next week. She will review need for surgical consultation at that visit. BI-RADS Category 4: Suspicious RISK: Due to the reported patient's history, the patient's estimated lifetime risk of developing breast cancer cannot be assessed at this time. We encourage all patients to talk with their providers about their risk assessment, further recommendations for managing breast health, and appropriate supplemental screening options if the patient has dense breast tissue. Interpreting Radiologist: Deric Gomez M.D. Electronically signed on: 02/03/2025 Electrician'S Assistant: ANDREEA Transcrianna Date/Time: Feb 03 2025 2:25P Dictated by : DERIC GOMEZ MD This examination was interpreted and the report reviewed and electronically signed by: DERIC GOMEZ MD on Feb 03 2025 5:48PM EST Authorizing ProviderResult TypeResult StatusVivek Abhyankar MDMAM-PAMAFinal Result * (ABNORMAL) HGB A1C (04/07/2015 10:57 AM EDT)ComponentValueRef RangeTest Method Analysis TimePerformed AtPathologist SignatureHemoglobin A1C7.9(H)4.0 - 6.0 % 04/07/2015 12:27 PM EDTCLEVELAND [facility]IC [facility]IN LABORATORYComment: [place] Diabetes Association guidelines indicate that patients with HgbA1c in the range 5.7-6.4% are at increased risk for development of diabetes, and intervention by lifestyle modification may be beneficial. HgbA1c greater or equal to 6.5% is considered diagnostic of diabetes. Estimated Average Pjgovdq175hi/dL04/07/2015 12:27 PM EDTCGUERNSEY [facility] LABORATORYComment: eAG: (Estimated average glucose) is a calculated value from HgbA1c and is employment program representative of the average blood glucose level in the last 2-3 month period. Specimen (Source)Anatomical Location / LateralityCollection Method / Volume Collection TimeReceived TimeBlood specimen (specimen)WHOLE BLOOD SPECIMEN / Igecdjb0804/07/2015 10:57 AM EDT04/07/2015 10:59 AM EDT Narrative Authorizing ProviderResult TypeResult StatusRobert Enrike Martínez DOLABORATORYFinal ResultPerforming OrganizationAddressCity/State/ZIP CodePhone Number [facility] [address] [place] [address] from Last 3 Months or Most Recently Relevant to Health Maintenance Insurance MemberSubscriberPlan / Payer (Effective 2019-Present)Name:Effie Tim Relation to Subscriber:SelfName:Effie Tim Payer ID:[id number] (NAIC) Group ID:[id number] Type:HMO Address: [place] [phone] Care Teams Team MemberRelationshipSpecialtyStart DateEnd Adenike Carrasco NP [address] [place] [address] PCP - GeneralNurse Practitioner04/02/25 Leandra Bailey LSW Social Worker06/28/22 Leah Lozano MD [address] [address] ReferringEnt - Otolaryngology1 Pascual De Los Santos MD [address] [place] [address] Primary Staff PhysicianCardiology01/12/25
--- OUTSIDE RECORDS SUMMARY | 2025-09-27 23:50 | XMS_ITS | Encounter Summary ---
Author Organization [employer] [facility] tem Address [id number] [address] [place] [address] Care Team Providers Care Environmental Emergencies Assistant Name Role Phone Adenike Carrasco Primary Care Provid er Encounter Details DateTypeDepartmentCare Team (Latest Contact Info)Kytobgoskma43/05/2025Travel Social History Tobacco UseTypesPacks/DayYears UsedDateSmoking Tobacco: FormerCigarettes Smokeless Tobacco: NeverAlcohol UseStandard Drinks/WeekCommentsNever0 (1 standard drink = 0.6 oz pure alcohol)Social Connection and Isolation PanelAnswer Date RecordedIn a typical week, how many times do you talk on the phone with family, friends, or neighbors?Once a week12/01/2022How often do you get together with friends or relatives?Never12/01/2022How often do you attend hindu or scientologist services?Never12/01/2022o you belong to any clubs or organizations such as hindu groups, unions, fraternal or athletic groups, or school groups?No 12/01/2022How often do you attend meetings of the clubs or organizations you belong to?Never12/01/2022re you , , , , never , or living with a partner?Cbpndey4012/01/2022UDIT-CAnswerDate RecordedQ1: How often do you have a [...] housing, medical care, and heating?Somewhat hard10/07/2023HQ-2AnswerDate RecordedTotal Dxiep813Finutah valley hospital [place] of Occupational Health - Occupational Stress QuestionnaireAnswerDate [...] of a household?No10/07/2023 ChildcareAnswerDate RecordedDo problems getting early childhood worker make it difficult for you to work [...] have a purpose and direction in my life.Aqcmxpbq77/13/2023EducationAnswerDate Recorded What is the highest level of school you have completed or the highest degree you have received?12th grade2CommentsNoSex and Gender Information ValueDate RecordedSex Assigned at GsyurPlpjkv01/03/2020 1:38 PM ESTLegal Sex Gdutdc5506/24/2015 11:29 AM EDTGender VgymgljgLhypxh25/03/2020 1:38 PM ESTSexual UibtcsibvixLhnxeppi60/03/2020 1:38 PM ESTdocumented as of this encounter Plan of Treatment DateTypeDepartmentCare Team (Latest Contact Info)Mypwsgsyqbv28/04/2025 1:00 PM ESTClinical Support [facility] Management [address] [place] [address] documented as of this encounter Goals GoalPatient Goal TypeAssociated ProblemsRecent ProgressPatient-Stated?Author Home Elly Mcmullen, CLAY MOLDER Note: Evaluation of progress towards goal: pending therapy eval documented as of this encounter Visit Diagnoses Not on filedocumented in this encounter Additional Health Concerns AssessmentNoted TimePHQ-9 Depression Total Score: 2:08 PM EDTA Body Mass Index follow-up plan has been documented for the wdppfci6012/11/2019 1:20 PM ESTdocumented as of this encounter Care Teams Team MemberRelationshipSpecialtyStart DateEnd Date Adenike Carrasco APRN-NP [address] [place] [address] PCP - GeneralNurse Practitioner03/26/25documented as of this encounter
--- OUTSIDE RECORDS SUMMARY | 2025-09-27 23:50 | XMS_ITS | Clinical Summary ---
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 Operator Name Role Phone Gualberto Bolaños MD Primary Care Provider [phone] Allergies Active AllergyReactionsCriticalityNoted DateCommentsAmitriptylineSwelling 02/10/20132467SnhqdjzsupicsgeGlicaql42/10/2019 Other reaction(s): Unknown DiltiazemGI intolerance,Mquldeq3911/08/2012 Other reaction(s): Intolerance Diphenhydramine-VexfoqlzcnnozUwzqulsWexnsi62/26/2020 Other reaction(s): Other: See Comments Muscle Spasm and Twitching Muscle Spasm and Twitching MlbytzxmfoKzjls69/10/2019IronGI intolerance,Diarrhea,Fmvqkcr8111/05/2018Lipoic AcidDiarrhea,GI intolerance,Itching,Other10/18/20213461FjhhwifwdqQlpsc85/29/2020 Other reaction(s): Cough XzdhxvtynkvwvGfqbtzg01/07/2013 Other reaction(s): Other: See Comments mouth turned purple mouth turned purple PramipexoleGI intolerance,Jteedex9909/29/2014 Other reaction(s): GI Upset SemaglutideGI vfttzdurroz71/16/2020Sodium Zrabxlx7410/21/2021 Other reaction(s): Unknown Ibelibq9306/11/2023StatinsGI jvedlsfzbox83/18/0585DwlnyagzmjSlbgyna22/07/2013 Other reaction(s): Other: See Comments Feels like she is being electrocuted Feels like she is being electrocuted PdbdpfcjwGcpuuwk68/01/8576BblillhblmxZnoerxa27/18/2018 ALL antidepressants Vitamin D12/01/2021 Other reaction(s): Unknown Vitamin D (Calciferol)Tpaxcpc4809/03/2018Vitamin E007/10/2023 Stomach issues Medications MedicationSigDispense QuantityRefillsLast FilledStart DateEnd DateStatus calcitriol (Rocaltrol) 0.25 MCG capsule Take 0.25 mcg by mouth.Active escitalopram (Lexapro) 10 MG tablet Take 10 mg by mouth in the morning.12/26/2022ctive fexofenadine (Rosey) 180 MG tablet Take 180 mg by mouth in the morning.Active Insulin Glargine Solostar 100 UNIT/ML solution pen-injector Inject 24 Units under the skin at bedtime.Active valsartan (Diovan) 160 MG tablet 1 (one) time each day at the same time.Active pantoprazole (ProtoNix) 40 MG EC tablet Take 40 mg by mouth in the morning and 40 mg in the evening.05/02/2023ctive metoprolol succinate XL (Toprol-XL) 50 MG 24 hr tablet Take 50 mg by mouth in the morning.03/02/2023ctive hydroCHLOROthiazide (HYDRODiuril) 25 MG tablet 1 (one) time each day at the same time.Active methocarbamol (Robaxin) 750 MG tablet Take 750 mg by mouth in the morning and 750 mg at noon and 750 mg in the evening.09/12/2022ctive zonisamide (Zonegran) 25 MG capsule Take 50-75 mg by mouth at bedtime.10/11/2022ctive albuterol HFA 90 mcg/act inhaler Inhale 2 puffs every 6 (six) hours if pwrqld5409/24/2024ctive clonazePAM (KlonoPIN) 2 MG tablet Take 6 mg by mouth at pldzaed4909/24/2024ctive glucagon (Baqsimi) 3 MG/DOSE nasal powder Administer in 1 nostril as needed for hypoglycemia. May repeat in 15 mins if no response using new gkimsu1709/24/2024ctive tiZANidine (Zanaflex) 4 MG tablet Take 4 mg by mouth every 8 (eight) hours if nuvaqv9406/05/2024ctive Active Problems ProblemNoted DateDiagnosed DateOtosclerosis, left12/05/2023nkle pain, right 10/18/2023Difficulty gcedkmf98/18/2023Depression, oljsunnnl49/08/2023Anxiety and yxubpwipjd48/24/2023KD (chronic kidney disease) stage 2, GFR 60-89 ml/min 06/11/2023cute deep vein thrombosis (DVT) of left lower anvohjwyb31/23/2023BMI 45.0-49.9, adult09/05/2021Gastroesophageal reflux disease without esophagitis 07/24/2019Diverticulitis of large intestine without perforation or abscess without irxwmset54/06/2019RLS (restless legs syndrome)12/25/2018Class 3 severe obesity without serious comorbidity with body mass index (BMI) of 40.0 to 44.9 in adult12/20/2017Essential hypertension, lpqrxb6108/30/2017Breast cancer 09/04/2012 Immunizations ImmunizationAdministration DatesNext DueInfluenza, injectable, quadrivalent, preservative free01/26/2022,08/20/2018,08/20/2017,07/23/2017Influenza, recombinant, quadrivalent, injectable, preservative free09/04/2020,08/22/2019 Moderna SARS-CoV-2 Wypocwtqydm59/03/2022,1Pneumococcal Polysaccharide OWLY8592,04/02/2015 Family History Medical HistoryRelationNameCommentsDiabetesBrotherUncle Catrachito GriffineHeart diseaseBrotherUncle Catrachito GriffineHeart failureBrotherUncle Catrachito Kim HypertensionBrotherUncle Catrachito GriffineEarly natural deathFatherWilliam kim Hearing lossFatherWilliam greeneHeart diseaseFatherWilliam greeneHeart failure FatherWilliam greeneHypertensionFatherWilliam greeneRheum arthritisFatherWilliam greeneHeart diseaseMaternal GrandmotherMildred chumleyHypertensionMaternal GrandmotherMildred chumleyAlzheimer's diseaseMotherMickey greeneDiabetesMother Darrius greeneHeart diseaseMotherMickey greeneHypertensionMotherMickey kim Mental illnessMotherMickey greeneAlcohol abuseMother's BrotherUncleCancer Mother's BrotherUncleDrug abuseMother's BrotherUncleHypertensionMother's Brother UncleStrokePaternal GrandfatherCarl cookEarly natural deathPaternal Grandmother Alvstef Colon arthritisPaternal GrandmotherAlvia cookHearing lossSisterMelissa WadsworthRheum arthritisSisterMelissa WadsworthHeart diseaseSon 1Jeremiah kim StrokeSon 2No name stroke during birthRelationNameStatusCommentsBrotherUncle Catrachito GreeneFatherWilliam greeneAliveMaternal GrandmotherMildred chumleyMother Darrius greeneAliveMother's BrotherUnclePaternal GrandfatherCarl cookPaternal GrandmotherAlvia cookSisterMelissa WadsworthSon 1Jeremiah greeneSon 2No name stroke during Social History Tobacco UseTypesPacks/DayYears UsedDateSmoking Tobacco: Some DaysCigarettes Started: 09/30/1981; Last attempted to quit: 09/04/2023assive Smoke Exposure: YesSmokeless Tobacco: Never Tobacco Cessation:Ready to Q uit: Not Asked; Counseling Given: Not Answered Comments:Off & on Alcohol UseStandard Drinks/WeekCommentsNot Currently0 (1 standard drink = 0.6 oz pure alcohol)Quit 10 yrs ago social drinkerCommentsUnknownSex and Gender InformationValueDate RecordedSex Assigned at WqkmyZgmifs05/17/2023 10:54 AM EDT Legal SryEkiurj53/15/2023 7:25 PM EDTGender ByzfmwymFjmmti73/17/2023 10:54 AM EDTSexual KnhhnieqlkbExzbabn75/17/2023 10:54 AM EDT Last Filed Vital Signs Vital SignReadingTime TakenCommentsBlood Zifduzhn002/9212/05/2023 2:38 PM EST Pulse--Temperature--Respiratory Rate--Oxygen Saturation--Inhaled Oxygen Concentration--Eftdpw324 kg (270 lb)12/05/2023 2:38 PM KROSbqtst794.6 cm (5' 4 ) 12/05/2023 2:38 PM ESTBody Mass Index46.35012/05/2023 2:38 PM EST Plan of Treatment Health MaintenanceDue DateLast DoneCommentsCT Jbpdmcbrjdds1965Colonoscopy 1965Colorectal Cancer Ueevexgli1965FIT-DNA1965FIT1965 FOBT1965 9285Htnlrsgfvqico1965Pap Smear1986Cervical Cancer Xqamkzzhj42/02/1995HPV/Watxpe7205/20/19950693Ehypiejva34/06/202502/04/2024, 12/18/2022, 12/12/2021, Additional history existsCOVID-19 Vaccine ( season)/08/2022, 11/21/2021, 09/17/2021, Additional history exists Influenza Vaccine (#1)/08/2022, 09/04/2020, 08/22/2019, Additional history existsPneumococcal Vaccine: Pediatrics (0 to 5 Years) and At-Risk Patients (6 to 64 Years)Aged Out06/21/2015, 04/02/2015No longer eligible based on patient's age to complete this topic Insurance Care Teams Team MemberRelationshipSpecialtyStart DateEnd Date Gualberto Bolaños MD PCP - GeneralFamily Hcrmfuuq97/18/23
--- OUTSIDE RECORDS SUMMARY | 2025-09-27 23:50 | XMS_ITS | Clinical Summary ---
Author Organization [facility] tem Address [id number] [address] [place] [address] Care Team Providers Care Sales And Events Coordinator Name Role Phone Adenike Carrasco Primary Care Provid er Allergies Active AllergyReactionsCriticalityNoted DateCommentsAmitriptyline HclSwelling 02/10/2013torvastatin AudgqcjAibjowgy44/03/2017Diltiazem Hcl08/29/2017 Fxhpuaadmpcsvmo24/10/2019 Other reaction(s): Unknown Edcexqmsv39/21/2012 Other reaction(s): Intolerance Diphenhydramine-ZyvbiswkdwkwuZpynxw88/26/2020 Other reaction(s): Other: See Comments Muscle Spasm and Twitching Dbfrkopovlh57/18/2018 ALL antidepressants YphkpsmtmfVjbfd76/10/2019IronDiarrhea,Itching,Abdominal Pain11/05/2018Lisinopril 12/17/2019 Other reaction(s): Cough Milk Thistle (Silybum Marianum)07/10/2023 vomiting Omctxxatweica38/07/2013 Other reaction(s): Other: See Comments mouth turned purple Gzislddwninde43/07/2013 Other reaction(s): Other: See Comments mouth turned purple Yqurkgrcolj15/11/2014 Other reaction(s): GI Upset Rosuvastatin QmdmddeZwprjrzd73/10/0821Vstlffvuanw99/16/2020Sodium Citrate-Citric Acid10/21/2021 Other reaction(s): Unknown Zcqnxfc6706/11/20230868Ypkbycf-Ocp-Xfm Reductase InhibitorsOther (See Comments), Vomiting,Hives08/30/2017 ALL statins Tetracyclic DigsrntyscqqfeyUwymz90/09/2020TirzepatideOther (See Comments) 07/08/2024 Legs swollen Xnonubyuok51/07/2013 Other reaction(s): Other: See Comments Feels like she is being electrocuted Nwomvzwii74/01/2021Vitamin D (With Calcium)10/21/2021 Other reaction(s): Unknown Cholecalciferol (Vitamin D3)Aikjcukw16/18/2018Vitamin E007/10/2023 Stomach issues Vitamin E Omwihdqlj89/22/2023 Stomach issues Medications MedicationSigDispense QuantityRefillsLast FilledStart DateEnd DateStatus NARCAN 4 mg/actuation spray,non-aerosol nasal spray 1 spray (4 mg total) as needed.07/29/2019Active tiZANidine (ZANAFLEX) 4 mg tablet Take 1 tablet (4 mg total) by mouth nightly.09/19/2019Active calcitrioL (ROCALTROL) 0.25 MCG capsule Take 1 capsule (0.25 mcg total) by mouth. 3 times a week01/05/2020Active zonisamide (ZONEGRAN) 25 mg capsule Take 2-3 capsules (50-75 mg total) by mouth nightly.10/11/2022ctive oxyCODONE (OxyCONTIN) 40 mg 12 hr tablet Take 1 tablet (40 mg total) by mouth every 12 (twelve) hours.Active albuterol (PROVENTIL,VENTOLIN) 2.5 mg /3 mL (0.083 %) nebulizer solution Indications:Acute bronchitis, unspecified organism,Simple chronic bronchitis ([facility]Inhale 3 mL (2.5 mg total) by nebulization every 4 (four) hours as needed for wheezing. 75 mL 4Active blood-glucose meter,continuous (DEXCOM G7 STORAGE WORKER) [facility] [place] Indications:Type 2 diabetes mellitus with diabetic neuropathy, without long-term current use of insulin ([facility])Use to check glucose throughout the day 1 each 4Active albuterol (PROVENTIL HFA;VENTOLIN HFA) 90 mcg/actuation inhaler Indications:Acute bronchitis, unspecified organismInhale 2 puffs every 6 (six) hours as needed for wheezing. 18 g 1105Active apixaban (ELIQUIS) 5 mg tablet Take 1 tablet (5 mg total) by mouth in the morning and 1 tablet (5 mg total) before bedtime. TAKE 1TABLET BY MOUTH IN THE MORNING AND 1 TABLET BEFORE BEDTIME. 180 tablet 5Active escitalopram (LEXAPRO) 10 mg tablet Take 1 tablet (10 mg total) by mouth every morning. 90 tablet 5Active Additional Information Patient not taking.Reason: Side effects, Reported on 09/23/2025 metoprolol succinate XL (TOPROL XL) 50 mg 24 hr tablet Take 1 tablet (50 mg total) by mouth in the morning. 90 tablet 5Active pantoprazole (PROTONIX) 40 mg EC tablet Take 1 tablet (40 mg total) by mouth in the morning and 1 tablet (40 mg total) before bedtime. TAKE1 TABLET BY MOUTH TWICE DAILY (IN THE MORNING AND BEFORE BEDTIME). 180 tablet 5Active rOPINIRole (REQUIP) 1 mg tablet Take 1 tablet (1 mg total) by mouth nightly.Active blood-glucose sensor ([employer] G7 SENSOR) device Indications:Type 2 diabetes mellitus with diabetic neuropathy, without long-term current use of insulin ([facility])USE TO CHECK GLUCOSE THROUGHOUT THE DAY CHANGE EVERY 10 DAYS 3 each 5Active dapagliflozin propanediol (FARXIGA) 10 mg tablet Indications:Type 2 diabetes mellitus with diabetic neuropathy, without long-term current use of insulin ([facility])Take 1 tablet (10 mg total) by mouth in the morning. 90 tablet 5Active blood-glucose meter kit Indications:Type 2 diabetes mellitus with diabetic neuropathy, without long-term current use of insulin ([facility])Use to check glucose daily and calibrate CGM. May dispense any covered brand 1 each 5Active blood sugar diagnostic (glucose blood) strip Indications:Type 2 diabetes mellitus with diabetic neuropathy, without long-term current use of insulin ([facility])Use to check glucose daily and calibrate CGM. May dispense any covered brand 100 strip 5Active lancets 33 gauge [facility] [place] Indications:Type 2 diabetes mellitus with diabetic neuropathy, without long-term current use of insulin ([facility])Use to the check glucose daily and calibrate CGM. Ok to dispense any covered brand 100 each 5Active linaGLIPtin (TRADJENTA) 5 mg tablet Indications:Type 2 diabetes mellitus with diabetic neuropathy, without long-term current use of insulin ([facility])Take 1 tablet (5 mg total) by mouth in the morning. 30 tablet 5Active montelukast (SINGULAIR) 10 mg tablet Take 1 tablet (10 mg total) by mouth nightly.Active repaglinide (PRANDIN) 2 mg tablet Indications:Type 2 diabetes mellitus with diabetic neuropathy, without long-term current use of insulin ([facility])Take 1 tablet (2 mg total) by mouth in the morning and 1 tablet (2 mg total) at noon and 1 tablet (2 mg total) in the evening. Take before meals. 90 tablet 5Active repaglinide (PRANDIN) 1 mg tablet Indications:Type 2 diabetes mellitus with diabetic neuropathy, without long-term current use of insulin ([facility])Take 1 tablet (1 mg total) by mouth in the morning and 1 tablet (1 mg total) in the evening. Take before meals. Take 10-15 min before dinner. 180 tablet Discontinued(Dose adjustment) clonazePAM (KlonoPIN) 2 mg tablet Take 2 tablets (4 mg total) by mouth nightly as needed for anxiety.09/23/2025 Discontinued(Therapy completed) cyanocobalamin, vitamin B-12, (VITAMIN B-12 INJ) Inject 1,000 mcg as directed See Admin Instructions. Every other month09/23/2025 Discontinued(Therapy completed) Active Problems ProblemNoted DateDiagnosed DateOther cirrhosis of liver03/10/2024Hypersomnia due to drug03/10/2024epression, wdiyyvtpz08/22/2024Family history of deep vein hygmuefdei94/04/2023cute pulmonary embolism without acute cor pulmonale 06/11/2023KD (chronic kidney disease) stage 2, GFR 60-89 ml/min06/11/2023 Controlled type 2 diabetes mellitus with hypoglycemia, with long-term current use of ywtbqwz4606/11/2023olyneuropathy due to drug06/11/2023nxiety and dvfmxtnqty64/24/2023cute deep vein thrombosis (DVT) of left lower extremity 06/10/2023OSA (obstructive sleep apnea)2BMI 45.0-49.9, adult09/05/2021 Seasonal agakvguuz32/07/2021Pityriasis rosea05/19/2021Other forms of angina ninsshsb78/06/2021inus tymxlqekhpn59/06/2020Shortness of sjjeuh8212/26/2019 Abnormal EKG012/26/2019Gastroesophageal reflux disease without esophagitis 07/24/2019RLS (restless legs syndrome)12/25/2018Diverticulitis of large intestine without perforation or abscess without exoegwtp21/06/2019History of pulmonary rwfgliqn92/17/2019Iron deficiency xwnchv9012/05/2018Primary osteoarthritis of left knee09/25/2018Class 3 severe obesity without serious comorbidity with body mass index (BMI) of 40.0 to 44.9 in adult12/20/2017Type 2 diabetes mellitus with diabetic neuropathy, without long-term current use of zenmnnp0408/30/2017Essential hypertension, mceqeu1708/30/2017Personal history of breast gavjwj8110/13/2014Peripheral /21/2012 Encounters DateTypeDepartmentCare KgwoVdcqybrzcfn29/05/2025 2:00 PM ESTClinical Support [facility] [address] [place] [address] Type 2 diabetes mellitus with diabetic neuropathy, without long-term current use of insulin ([facility]) (Primary Dx)09/23/20257493Eihjcx99/28/2025 10:00 AM EDTNurse Injection [facility] Medication [facility] [address] [place] [address] Encounter for immunization (Primary Dx); Type 2 diabetes mellitus with diabetic neuropathy, without long-term current use of insulin ([facility])09/15/20254190Pvghsf55/28/2025 1:00 PM EDTClinical Support [facility] [address] [place] [address] Type 2 diabetes mellitus with diabetic neuropathy, without long-term current use of insulin ([facility]) (Primary Dx)07/16/2025Refill [facility] Medication Management [address] [place] [address] Louisa Alejo, [facility] Type 2 diabetes mellitus with diabetic neuropathy, without long-term current use of insulin ([facility])07/16/2025Travelfrom Last 3 Months Immunizations ImmunizationAdministration DatesNext DueCOVID-19, mRNA, LNP-S, PF, 100mcg/0.5mL Dose11/21/2021,09/17/2021Influenza, Im Flucelvax (Pf)09/15/2025Influenza, Injectable, quadrivalent (PF)01/26/2022,08/20/2018,08/20/2017,07/23/2017 Influenza, Recombinant, Quadrivalent, Injectable, Zjvzhrd2909/04/2020,08/22/2019 Pneumococcal Iiyqhdfjwqxjts61/03/2015,04/02/2015Tdap02/05/2024 Family History Medical HistoryRelationNameCommentsHeart failureFatherHypertensionFather Unexplained deathFatherHypertensionMaternal GrandmotherDementiaMotherDiabetes MotherHypertensionMotherDeep vein thrombosisPaternal GrandmotherRelationName StatusCommentsFatherDeceasedMaternal GrandmotherMotherPaternal Grandmother Social History Tobacco UseTypesPacks/DayYears UsedDateSmoking Tobacco: FormerCigarettes Smokeless Tobacco: NeverAlcohol UseStandard Drinks/WeekCommentsNever0 (1 standard drink = 0.6 oz pure alcohol)Social Connection and Isolation PanelAnswer Date RecordedIn a typical week, how many times do you talk on the phone with family, friends, or neighbors?Once a week12/01/2022How often do you get together with friends or relatives?Never12/01/2022How often do you attend tenriism or confucianism services?Never3Do you belong to any clubs or organizations such as tenriism groups, unions, fraternal or athletic groups, or school groups?No 12/01/2022How often do you attend meetings of the clubs or organizations you belong to?Never12/01/2022re you , , , , never , or living with a partner?Eupkdmj0212/01/2022UDIT-CAnswerDate RecordedQ1: How often do you have a [...] housing, medical care, and heating?Somewhat hard10/07/2023HQ-2AnswerDate RecordedTotal Tovln292Finst. [facility] of Occupational Health - Occupational Stress QuestionnaireAnswerDate [...] of a household?No10/07/2023 ChildcareAnswerDate RecordedDo problems getting childhood teacher make it difficult for you to [...] have a purpose and direction in my life.Oysenzhd65/13/2023EducationAnswerDate Recorded What is the highest level of school you have completed or the highest degree you have received?12th grade08/21/2022CommentsNoSex and Gender Information ValueDate RecordedSex Assigned at LxjtmTgzqxh28/03/2020 1:38 PM ESTLegal Sex Uexqra0606/24/2015 11:29 AM EDTGender AopxmdwnQldxoy41/03/2020 1:38 PM ESTSexual JtoszstnkukNkkofwvr18/03/2020 1:38 PM EST Last Filed Vital Signs Vital SignReadingTime TakenCommentsBlood Uqztbjyg443/7409/23/2025 2:07 PM EST Scatv876709/23/2025 2:07 PM VPWFxnaliuzphr35.7 ??C (98.1 ??F)01/20/2025 1:57 PM ESTRespiratory Awdx984902/05/2025 2:06 PM EDTOxygen Vedupkwoha91%07/16/2025 1:51 PM EDTInhaled Oxygen Concentration--Kzvddu814.1 kg (267 lb)09/23/2025 2:07 PM ZLLWvxkuc836.6 cm (5' 4 )01/20/2025 1:57 PM ESTBody Mass Index45.8301/20/2025 1:57 PM EST Plan of Treatment DateTypeDepartmentCare Team (Latest Contact Info)Bfhkxivztgg36/04/2025 1:00 PM ESTClinical Support [facility] [address] [place] [address] Health MaintenanceDue DateLast DoneCommentsAdult BMI Follow Up Plan1983 Zoster (Shingles) Vaccine (1 of 2)05/20/20158833Qjyyyceiwmi24, 04/29/2019Diabetic Foot Exam, 11/23/2021, 11/24/2020, Additional history existsDiabetic Ophthalmology Exam/10/2023, 10/28/2019RSV ( or age 60+ yrs) (1 - Risk 60-74 years 1-dose series) 2025OVID-19 Vaccine ( season)503/08/2022, 11/21/2021, 09/17/2021, Additional history pddumlDmsetsjtl85/07/202602/05/2025, 12/25/2023, 12/18/2022, Additional history existsDepression Tvvvulgjy62/ Tobacco Sfkucbnpi88/dult BMI Hkesyompk53/03/2025 DTaP,Tdap and Td Vaccines (2 - Td or Tdap)/Influenza Vaccine Irqlchniw83/28/2025, 01/26/2022, 09/04/2020, Additional history exists Goals GoalPatient Goal TypeAssociated ProblemsRecent ProgressPatient-Stated?Author Home Elly Mcmullen, ELECTRONIC SCALE SUBASSEMBLER Note: Evaluation of progress towards goal: pending therapy eval Medical Devices ImplantedTypeAreaManufacturerDevice IdentifierShelf Expiration DateModel / Serial / LotCmnt Bn Hvisc Plc Rpl [id number] - Sn/A - [id number] Implanted:Qty: 2 on 09/25/2018 [facility]ementLeft: KneeHERAEUS MEDICAL [id number] / N/A / [id number] Artc 6-9 Ef 12mm Kn Lt Tib - Sn/A - [id number] Implanted:Qty: 1 on 09/25/2018 [facility] ImplantLeft: KneeZimmer Rfvwdn7309/18/2019 [id number] / N/A / [id number] Ptlr 32mm Persona Gordonly - Sn/A - [id number] Implanted:Qty: 1 on 09/25/2018 by Michele Jack DO at [facility] ImplantLeft: Gauravhuma Xorcym6607/19/2026 [id number] / N/A / [id number] Fem 7 Std Kn Lt Cmnt Post - Sn/A - [id number] Implanted:Qty: 1 on 09/25/2018 by Michele Jack DO at [facility] ImplantLeft: Gauraver Bsmkwe8606/18/2028 [id number] / N/A / [id number] Stm 30mm 14mm Kn Tib - Sn/A - [id number] Implanted:Qty: 1 on 09/25/2018 by Michlee Jack DO at [facility] ImplantLeft: [facility] HospitalAb[facility] Fwzghe7907/19/2028 [id number] / N/A / [id number] Tib 5d E Kn Lt Cmnt Stm - Sn/A - [id number] Implanted:Qty: 1 on 09/25/2018 [facility]: [facility] hospital [id number] / N/A / [id number]aqsBmfsla [facility] Centerhelf Expiration DateModel / Serial / LotScr Gd 48mm Qd-Spr Hex Hd Mis - Sn/A - [id number] Explanted:Qty: 2 on 09/25/2018 by [facility] DO at [id number] / N/A / [id number] Bn Adrián 35mm 6.5mm Hip St Rpl [id number] + 32 - Sn/A - [id number] Explanted:Qty: 2 on 09/25/2018 by Michele Jack DO at [facility] [id number] / N/A / [id number] Procedures Procedure NamePriorityDate/TimeAssociated DiagnosisCommentsPOCT HEMOGLOBIN A1C LFPLdevafm11/28/2025 1:44 PM EDT Type 2 diabetes mellitus with diabetic neuropathy, without long-term current use of insulin ([facility]) DIABETES EYE NPFODcdxqah42/12/2023MAMM SCREENING BILATERAL W CADRoutine 12/12/2021 12:00 AM EST Encounter for screening mammogram for malignant neoplasm of breast FZELCQZVMIOMavqlrd38/13/2020from Last 3 Months or Most Recently Relevant to Health Maintenance Results * (ABNORMAL) POCT Hemoglobin A1C - MTM (07/16/2025 1:44 PM EDT)ComponentValueRef RangeTest MethodAnalysis TimePerformed AtPathologist SignatureExternal MTM Hemoglobin A1C6.8(A)4 - 6MANUALLY TRANSCRIBED RESULTSSpecimen (Source) Anatomical Location / LateralityCollection Method / VolumeCollection Time Received GiktUitwa62/28/2025 1:44 PM EDT Narrative Authorizing ProviderResult TypeResult StatusPromedica Pharmacy Medication ManagementPOINT OF CARE TEST ORDERABLESFinal ResultPerforming Organization AddressCity/State/ZIP CodePhone Number MANUALLY TRANSCRIBED RESULTS * DIABETES EYE EXAM (04/30/2023) Narrative Authorizing ProviderResult TypeResult StatusScanning Provider ExternalHEALTH MAINTENANCEFinal ResultPerforming OrganizationAddressCity/State/ZIP CodePhone Number MANUALLY TRANSCRIBED RESULTS * Mammography screening bilateral with CAD (12/12/2021 12:00 AM EST)Specimen (Source)Anatomical Location / LateralityCollection Method / VolumeCollection TimeReceived Time Narrative Authorizing ProviderResult TypeResult StatusScanning Provider ExternalIMG MAMMOGRAPHY ORDERABLESFinal Result * COLONOSCOPY (05/31/2020) Narrative Authorizing ProviderResult TypeResult StatusScanning Provider ExternalHEALTH MAINTENANCEFinal ResultPerforming OrganizationAddressCity/State/ZIP CodePhone Number MANUALLY TRANSCRIBED RESULTS from Last 3 Months or Most Recently Relevant to Health Maintenance Insurance * Guarantor: Effie Timcourtney TypeRelation to PatientDate of BirthPhone Billing AddressPersonal/XbllkvVqsw1965 [address] [address] * Guarantor: MeetaEffieAccocourtney TypeRelation to PatientDate of BirthPhone Billing AddressThird Constitution Party YjwcdcmgmGdpa1965 [address] [address] Advance Directives * Full Code (Latest Code Status on File) Date ActivatedDate InactivatedComments06/10/2023 9:11 PM06/13/2023 3:20 PM * Full Code Date ActivatedDate XtzhldxfcxrPnfwnplw58/7/2018 12:52 PM09/27/2018 5:07 PM Care Teams Team MemberRelationshipSpecialtyStart DateEnd Date Adenike Carrasco APRN-NP [address] [facility] [place] [address] PCP - GeneralNurse Practitioner03/26/25
[2025-09-27 23:53] LABS: Cast Seen? NONE SEEN #/LPF (NONE SEEN); Crystals Seen? None Seen #/HPF (None Seen)
[2025-09-27 23:54] LABS: Urine Culture Indicated NO
--- NOTE | 2025-09-28 00:39 | ED_ITS ---
HPI - Abdominal Pain General Chief Complaint: Abdominal Pain Stated Complaint: abd pain Time Seen by Provider: 09/27/25 22:52 Source: patient Mode of arrival: ambulance Limitations: no limitations History of Present Illness HPI narrative: cc - abdominal pain Pt brought in by EMS for evaluation after she developed worsened abdominal pain tonight. EMS gave her 50mcg Fentanyl IV in route. She localizes the pain to the right abdomen, right flank and into the right groin. No recent fall or injury. No fever, vomiting or diarrhea. She passed urine and stool normally earlier today. Related Data Previous Rx's ?Medication ?Instructions ?Recorded ciprofloxacin HCl 500 mg tablet 500 mg PO BID #14 tabs 09/28/25 (Cipro) hyoscyamine sulfate 0.125 mg 0.125 mg PO Q6H PRN abdom inal pain 09/28/25 sublingual tablet (Levsin/SL) #20 tabs metronidazole 500 mg tablet 500 mg PO BID 7 days #14 t abs 09/28/25 Allergies Allergy/AdvReac Type Severity Reaction Status Date / Time [id number] Reductase AdvReac Mild Hives Verified 09/27/25 22:55 Inhibitor PFSH PFSH Social History Little interest or pleasure in doing things: not at all Feeling down, depressed, or hopeless: not at all Exam Narrative Exam Narrative: Nurses notes and vital signs reviewed and patient is not hypoxic. afebrile General: Crying and moaning on arrival. Skin: Warm, dry, no pallor noted. No rash to abdomen or flank. Eye: Pupils are equal, round and EOMI. No scleral icterus. Ears, Nose, Mouth, and Throat: Oral mucosa is moist Cardiovascular: Regular Rate and Rhythm without murmur, gallop or rub. Respiratory: No accessory muscle use or respiratory distress. Lungs are clear to auscultation, no wheezing, rales or rhonchi Back: No CVA tenderness Musculoskeletal: normal ROM, no calf or popliteal tenderness, no lower extremity edema/swelling GI: Abdomen is soft, non-distended. Normal bowel sounds. No masses appreciated. Diffuse tenderness to palpation. No rebound, guarding, or rigidity noted. Neurological: A&O x4. No cranial nerve dysfunction observed. No truncal ataxia. Moves all extremities. Sensation intact. Psychiatric: Cooperative and interactive. Normal mood and affect. Constitutional Vital Signs, click to edit/add: Last Vital Signs Temp 98.0 F 09/27/25 22:55 Pulse 61 09/27/25 22:55 Resp 28 H 09/27/25 22:55 BP 165/97 H 09/27/25 22:55 Pulse Ox 99 09/27/25 22:55 O2 Del Method Room Air 09/27/25 22:55 Course Vital Signs Vital signs: Vital Signs Temperature 98.0 F 09/27/25 22:55 Pulse Rate 61 09/27/25 22:55 Respiratory Rate 28 H 09/27/25 22:55 Blood Pressure 165/97 H 09/27/25 22:55 Pulse Oximetry 99 09/27/25 22:55 Oxygen Delivery Method Room Air 09/27/25 22:55 Temperature 98.0 F 09/27/25 22:55 Pulse Rate 61 09/27/25 22:55 Respiratory Rate 28 H 09/27/25 22:55 Blood Pressure 165/97 H 09/27/25 22:55 Pulse Oximetry 99 09/27/25 22:55 Oxygen Delivery Method Room Air 09/27/25 22:55 MDM - Abdominal Pain MDM Narrative Medical decision making narrative: Peripheral IV established and blood drawn and sent for testing. She was ordered to undergo CT scanning of the abdomen pelvis with IV contrast. She got Toradol for pain. Blood testing is unremarkable with a normal white blood cell count, normal electrolytes, slightly elevated BUN/creatinine at 22 and 1.48. LFTs normal. Urinalysis negative except for glucosuria. According to the radiologist, CT scan reveals acute sigmoid diverticulitis without abscess formation or pneumoperitoneum. Pt was ordered to receive cipro and flagyl in the ED and was discharged home with prescriptions for the same as well as Levsin for abdominal pain. She was instructed to maintain a clear liquid diet for the next 24 hours and then advance to soft bland foods, avoiding seds, nuts, other hard foods. Advance diet as tolerated. ED return if worse. Medical Records Attestation: I reviewed the patient's medical records. Medical records narrative: No prior ED records Lab Data Attestation: I reviewed the patient's lab results. Labs: Lab Results 09/27/25 09/27/25 Range/Units 23:07 23:39 WBC 8.5 (4.0-11.0) 10^3/uL RBC 4.98 (4.20-5.40) 10^6/uL Hgb 14.7 (12.0-16.0) g/dL Hct 44.9 (36.0-48.0) % MCV 90.2 (81.0-99.0) fL MCH 29.5 (26.7-34.0) pg MCHC 32.7 (29.9-35.2) g/dL RDW 14.2 (11.0-15.0) % Plt Count 151 (150-450) 10^3/uL MPV 10.1 (9.5-13.5) fL Neut % (Auto) 76.6 H (43.0-75.0) % Lymph % (Auto) 14.0 L (20.5-60.0) % [place] % (Auto) 5.9 (1.7-12.0) % Eos % (Auto) 2.5 (0.9-7.0) % Baso % (Auto) 0.6 (0.2-2.0) % Neut # (Auto) 6.5 (1.4-6.5) 10^3/uL Lymph # (Auto) 1.2 (1.2-3.8) 10^3/uL [place] # (Auto) 0.5 (0.3-0.8) 10^3/uL Eos # (Auto) 0.2 (0.0-0.7) 10^3/uL Baso # (Auto) 0.1 (0.0-0.1) 10^3/uL Abs Immat Gran (auto) 0.03 (0.00-0.03) 10^3/uL Imm/Tot Granulo (auto) 0.4 (0.0-0.5) % Sodium 142 (136-145) mmol/L Potassium 3.9 (3.5-5.1) mmol/L Chloride 111 H (98-107) mmol/L Carbon Dioxide 22.1 (21.0-32.0) mmol/L Anion Gap 12.8 BUN 22.0 H (7.0-18.0) mg/dL Creatinine 1.48 H (0.55-1.02) mg/dL Est GFR ( Amer) 44 L (>=60 mL/min/1.73m^2) Est GFR (Non-Af Amer) 36 L (>=60 mL/min/1.73m^2) BUN/Creatinine Ratio 14.9 Glucose 235 H (74-106) mg/dL Calcium 8.8 (8.5-10.1) mg/dL Total Bilirubin 0.4 (0.2-1.0) mg/dL AST 26 (15-37) U/L ALT 33 (14-59) U/L Alkaline Phosphatase 119 H (46-116) U/L Total Protein 7.1 (6.4-8.2) g/dL Albumin 3.0 L (3.4-5.0) g/dL Globulin 4.1 g/dL Albumin/Globulin Ratio 0.7 Lipase 64.0 (16.0-77.0) U/L Urine Color Lt. yellow (YELLOW) Urine Clarity Clear (CLEAR) Urine pH 6.0 (5.0-9.0) Ur Specific [place] 1.010 (1.005-1.025) Urine Protein Negative (NEG/TRACE) mg/dL Urine Glucose (UA) >=1000 A (NEGATIVE) mg/dL Urine Ketones Negative (NEGATIVE) mg/dL Urine Occult Blood Negative (NEGATIVE) Urine Nitrite Negative (NEGATIVE) Urine Bilirubin Negative (NEGATIVE) Urine Urobilinogen 2.0 A (0.2-1.0) EU/dL Ur Leukocyte Esterase Negative (NEGATIVE) Urine RBC 0-2 (0-2) #/HPF Urine WBC 0-2 A (NONE SEEN) #/HPF Ur Squamous Epith Cells Rare (NONE/RARE) #/LPF Urine Crystals None seen (None Seen) #/HPF Urine Bacteria None seen (NONE SEEN) #/HPF Urine Casts None seen (NONE SEEN) #/LPF Urine Mucus None seen (NONE SEEN) Ur Culture Indicated? No Imaging Data CT scan - abdomen: Attestation: I have reviewed the pertinent imaging results. Radiologist's impression: Acute sigmoid diverticulitis. No abscess formation or pneumoperitoneum. Discharge Plan Discharge Chief Complaint: Abdominal Pain Clinical Impression: Diverticulitis, Abdominal pain Patient Disposition: Home, Self-Care Time of Disposition Decision: 00:42 Prescriptions / Home Meds: New ciprofloxacin HCl [Cipro] 500 mg tablet 500 mg PO BID Qty: 14 0RF hyoscyamine sulfate [Levsin/SL] 0.125 mg tablet, sublingual 0.125 mg PO Q6H PRN (Reason: abdominal pain) Qty: 20 0RF metronidazole 500 mg tablet 500 mg PO BID 7 Days Qty: 14 0RF Print Language: [place] Instructions: Diverticulitis (ED), Abdominal Pain (ED) Referrals: KIERRA JUAREZ [Primary Care Provider, Unknown] - 1 week
[2025-09-28] MEDS: METRONIDAZOLE 250 MG TABLET 500 MG PO (00:54)
[2025-09-28] MEDS: CIPROFLOXACIN IN 5 % DEXTROSE 400 MG/200 ML PREMIX 200 MG IV (00:54)
[2025-09-28 01:34] VITALS: BP 158/76; PULSE 94; O2SAT 97
== END 2025-09-28 02:35 | disposition home or self-care (01) ==
PROVIDERS: Emergency Provider Emergency Medicine; Family Provider Family Medicine; PCP Nurse Practitioner Family
DX: K57.92 Diverticulitis of intestine, part unspecified, without perforation or abscess without bleeding (principal); R10.84 Generalized abdominal pain; R10.31 Right lower quadrant pain
CPT/HCPCS: 36415; 74177; 80053; 81001; 83690; 85025; 96365; 96375; 99285; J0744; J1885; Q9967